=== PATIENT | female | born 1970 | race Caucasian/White ===

== ENCOUNTER 2022-10-10 11:16 | Outpatient (OUT) | payer BC, SELFPAY ==
--- NOTE | 2022-10-10 11:17 | XR_ITS ---
The [place] [id number] Patient Name: ANALY BARNES MRN: [id number] date: 1970 Sex: F Assigned Patient Location: [facility] Current Patient Location: [facility] Accession/Order Number: [id number] Exam Date: 10/10/2022 11:16 Report Date: 10/10/2022 15:48 At the request of: ZACH MCNAMARA Procedure: XR foot RT min 3V PROCEDURE: XR foot RT min 3V HISTORY: RIGHT FOOT PAIN COMPARISON: XR foot right 09/19/2022 FINDINGS: BONES:Mechanical fusion of the first metatarsophalangeal joint via dorsal plate and screws; no hardware fracture or loosening. No bone fracture dislocation. Mild degenerative changes the midfoot and calcaneal degenerative enthesopathic spurring. SOFT TISSUES:Mild distal dorsal soft tissue swelling. EFFUSION:None visible. OTHER: Negative. IMPRESSION: 1. Stable surgical changes without evidence of hardware failure or change in alignment. Electronically authenticated by: JELENA CORONADO Date: 10/10/2022 15:48
== END 2022-10-10 11:17 ==
PROVIDERS: PCP Podiatrist Foot & Ankle Surgery; Visit Provider Podiatrist Foot & Ankle Surgery
DX: M20.11 Hallux valgus (acquired), right foot (principal)
CPT/HCPCS: 73630

== ENCOUNTER 2022-11-22 10:57 | Outpatient (OUT) | payer BC, SELFPAY ==
--- NOTE | 2022-11-22 11:10 | XR_ITS ---
The [address] [address] Patient Name: ANALY BARNES MRN: [id number] date: 1970 Sex: F Assigned Patient Location: [facility] Current Patient Location: [facility] Accession/Order Number: [id number] Exam Date: 11/22/2022 11:10 Report Date: 11/22/2022 15:11 At the request of: ZACH MCNAMARA Procedure: XR foot RT min 3V PROCEDURE: XR foot RT min 3V DATE: 11/22/2022 10:10 AM CDT COMPARISONS: 10/10/2022 CLINICAL INDICATION: RIGHT FOOT PAIN FINDINGS: As on previous exam there is dorsal plate fixed by screws traversing the first metatarsal phalangeal joint space. This plate now shows a fracture with 1 to 2 mm of distraction. There also was a oblique pin traversing the joint space. This has retracted somewhat as it joint space is not widened when compared to previous exam. The findings suggest that the first metatarsal phalangeal joint space fusion has been distracted a few millimeters. XR/XR foot RT min 3V IMPRESSION: The significant finding on today's exam is that the dorsal metallic plate fixating the first metatarsal phalangeal joint space has fractured with slight distraction. The first metatarsal phalangeal fusion has distracted slightly. The oblique screw has also retracted slightly. . Electronically authenticated by: TERRENCE LEWIS Date: 11/22/2022 15:11
== END 2022-11-22 10:58 | disposition home or self-care (01) ==
LOC: RAD 10:57
PROVIDERS: Visit Provider Podiatrist Foot & Ankle Surgery
DX: M20.11 Hallux valgus (acquired), right foot (principal)
CPT/HCPCS: 73630

== ENCOUNTER 2022-12-02 10:09 | Outpatient (OUT) | payer BC, SELFPAY ==
--- NOTE | 2022-12-02 | CT_ITS ---
The [address] [address] Patient Name: ANALY BARNES MRN: [id number] date: 1970 Sex: F Assigned Patient Location: CT Current Patient Location: CT Accession/Order Number: [id number] Exam Date: 12/02/2022 10:45 Report Date: 12/02/2022 23:02 At the request of: ZACH MCNAMARA Procedure: CT foot RT wo con EXAM: CT foot RT wo con HISTORY: Postoperative foot pain COMPARISON: X-rays 11/22/2022 TECHNIQUE: Axial CT imaging is performed. Sagittal and coronal reformatted/reconstructed sequencing was performed. FINDINGS: The patient is status post first metatarsophalangeal joint attempted arthrodesis using dorsal plate and screws and a medial lateral oblique screw. There is a fracture of the proximal aspect of the plate adjacent to the third distal screw within the metatarsal head. The 3 distal proximal phalanx screws exhibit no gross abnormality. The screw head of the oblique screw is a proud from the medial cortex of the proximal phalanx by 3 mm (see axial 127). The distal aspect of the screw threads are proud from the lateral cortex of the first metatarsal by 4 mm. There is no osseous incorporation of the first metatarsophalangeal joint. Degenerative changes of the first metatarsal head and sesamoid articulation. Subcutaneous soft tissue edema adjacent to the first metatarsophalangeal joint. No visualized acute osseous fracture, dislocation, subluxation or osseous lesion. The remainder of the joint spaces are unremarkable for patient's age.. CT/CT foot RT wo con IMPRESSION: 1. Failed arthrodesis of the first metatarsophalangeal joint with a fracture of the dorsal plate and no osseous incorporation of the first metatarsophalangeal joint. 2. The transverse screw between the first proximal phalanx and first metatarsal head is proud 3 mm from the medial cortex of the first proximal phalanx and the threads are 4 mm proud from the lateral cortex of the metatarsal. Electronically authenticated by: JANELLE MEZA Date: 12/02/2022 23:02
== END 2022-12-02 10:10 | disposition home or self-care (01) ==
LOC: CT 10:10
PROVIDERS: PCP Nurse Practitioner Family; Visit Provider Podiatrist Foot & Ankle Surgery
DX: M20.11 Hallux valgus (acquired), right foot (principal); M96.0 Pseudarthrosis after fusion or arthrodesis; T84.213A Breakdown (mechanical) of internal fixation device of bones of foot and toes, initial encounter
CPT/HCPCS: 73700

== ENCOUNTER 2022-12-07 11:06 | Outpatient (OUT) | payer BC, SELFPAY ==
--- NOTE | 2022-12-07 11:40 | P.GSHP_ITS ---
History of Present Illness History of Present Illness Chief complaint: hallux valgus right Narrative: Patient presents for preadmission testing. Please see HPI from Dr. Thakur dated 11/22/2022. Review of Systems ROS Narrative Please see ROS from Dr. Thakur dated 11/22/2022. [facility] Medical History (Updated 12/07/22 @ 11:43 by Marianna Bustos NP) Surgical History (Updated 12/07/22 @ 11:25 by Marianna Bustos NP) Family History (Updated 12/07/22 @ 11:24 by Marianna Bustos NP) Other Family history of breast cancer Family history of diabetes mellitus Family history of stroke Social History (Updated 12/07/22 @ 11:22 by Marianna Bustos NP) Within the past year, how often did you have a drink containing alcohol: never Score interpretation: A score less than 3 is consistent with normal alcohol consumption. 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 Highest level of school completed/degree received: high school graduate Meds Home Medications and Allergies Home Medications Medication Instructions Recorded Confirmed Type calcium 100 mg capsule mg PO 12/07/22 History magnesium 200 mg tablet 200 mg PO DAILY 12/07/22 12/07/22 History multivitamin (Daily Multi-Vitamin 1 tab PO DAILY 12/07/22 12/07/22 History tablet) omega 2-egr-eri-fish oil 1,000 mg 1 cap PO DAILY 12/07/22 12/07/22 History (120 mg-180 mg) capsule (Fish Oil) Allergies Allergy/AdvReac Type Severity Reaction Status Date / Time morphine Allergy itching Verified 12/07/22 11:19 Exam Narrative Exam Narrative: Constitutional: Awake, alert, comfortable, well-appearing, nontoxic, interactive, vital signs as charted Head: Normocephalic, atraumatic Neck: Supple, normal appearance, normal range of motion, no meningeal signs, no lymphadenopathy Respiratory: No respiratory distress, breath sounds clear Cardiovascular: Regular rate and rhythm, strong and regular heart tones Psychiatric: Oriented ?3, Flat affect Assessment and Plan Assessment and Plan (1) Hallux valgus: (2) Pseudoarthrosis: (3) Metal bone fixation hardware in place: (4) Pain due to internal orthopedic prosthetic devices, implants and grafts, subsequent encounter: (5) Unspecified complication of internal orthopedic prosthetic device, implant and graft, subsequent encounter: Plan 1st MPJ revision arthrodesis, removal of hardware and placement of new hardware right foot scheduled with Dr. Thakur 12/11/2022.
[2022-12-07 12:08] LABS: Anion Gap 11.4; BUN Creatinine Ratio 19.2; Calcium 8.6 mg/dL (8.5-10.1); Carbon Dioxide 25.7 mmol/L (21.0-32.0); Chloride 105 mmol/L (98-107); Estimated GFR (African America >60 (>=60); Estimated GFR (Non-African Ame >60 (>=60); Glucose 98 mg/dL (74-106); Potassium 4.1 mmol/L (3.5-5.1); Sodium 138 mmol/L (136-145)
== END 2022-12-07 11:07 | disposition home or self-care (01) ==
PROVIDERS: PCP Nurse Practitioner Family; Visit Provider Podiatrist Foot & Ankle Surgery
DX: Z01.812 Encounter for preprocedural laboratory examination (principal); Z01.818 Encounter for other preprocedural examination; M20.11 Hallux valgus (acquired), right foot; M96.0 Pseudarthrosis after fusion or arthrodesis; I10 Essential (primary) hypertension
CPT/HCPCS: 36415; 80048; G0463

== ENCOUNTER 2022-12-11 07:21 | Day surgery (SDC) | payer BC, SELFPAY ==
[2022-12-07 11:33] VITALS: BP 126/71; PULSE 78; RESP 14; TEMP 36.2; O2SAT 96; BMI 34.7
[2022-12-11] VITALS (10 sets, daily range): BP systolic 134–150; BP diastolic 72–84; PULSE 70–86; RESP 9–20; TEMP 36.2–36.4; O2SAT 92–98; BMI 34.6
--- NOTE | 2022-12-11 | XR_ITS ---
[address] [address] Patient Name: ANALY BARNES MRN: [id number] date: 1970 Sex: F Assigned Patient Location: [facility] Current Patient Location: [facility] Accession/Order Number: [id number] Exam Date: 12/11/2022 09:20 Report Date: 12/11/2022 23:34 At the request of: ZACH MCNAMARA Procedure: XR foot RT 2V EXAM: XR foot RT 2V HISTORY: RIGHT FOOT PAIN COMPARISON: None. TECHNIQUE: 19 image intensifier views FINDINGS: 19 intraoperative image intensifier views document revision of the first MP joint arthrodesis. Electronically authenticated by: Svetlana TRIVEDI Date: 12/11/2022 23:34
[2022-12-11 07:30] LABS: Basophils Absolute Auto 0.1 10^3/uL (0.0-0.1); Basophils Percent Auto 0.8 % (0.2-2.0); Eosinophils Absolute Auto 0.2 10^3/uL (0.0-0.7); Eosinophils Percent Auto 2.2 % (0.9-7.0); Hematocrit 39.6 % (36.0-48.0); Immature Granulocytes Abs Auto 0.03 10^3/uL (0.00-0.03); Immature Granulocytes Pct Auto 0.3 % (0.0-0.5); Lymphocytes Percent Auto 32.8 % (20.5-60.0); Mean Corpuscular HGB Conc 32.8 g/dL (29.9-35.2); Mean Corpuscular Hemoglobin 29.6 pg (26.7-34.0); Mean Corpuscular Volume 90.2 fL (81.0-99.0); Mean Platelet Volume 9.3 fL (9.5-13.5); Monocytes Absolute Auto 0.9 10^3/uL (0.3-0.8); Monocytes Percent Auto 9.9 % (1.7-12.0); Neutrophils Absolute Auto 4.9 10^3/uL (1.4-6.5); Platelet Count 273 10^3/uL (150-450); Red Blood Count 4.39 10^6/uL (4.20-5.40); White Blood Count 9.1 10^3/uL (4.0-11.0)
--- NOTE | 2022-12-11 07:53 | PC.NURSE ---
right great toe is swollen
[2022-12-11 07:57] LABS: Glucometer 115 mg/dL (74-106)
[2022-12-11] MEDS: LACTATED RINGER'S SOLUTION 1,000 ML 50 ML IV (07:58)
[2022-12-11] MEDS: CEFAZOLIN SODIUM/DEXTROSE,ISO 2 GM/50 ML PIGGYBACK IV (09:08)
--- NOTE | 2022-12-11 09:35 | PC.NURSE ---
0817- Final timeout completed. Patient placed on O2 at 3/L min via nc. Patient also placed on heart monitor. 0820- Patient positioned for right abductor canal block. Dr. Murrell at bedside and cleans right foot using sterile technique. 0824- Abductor canal block initiated. 0826- Abductor canal block completed. Patient tolerated it well. 0827- Patient positioned on left hip. 0829- Right popliteal block initiated. 0832- Popliteal block completed. Patient tolerated it well. See posted vital signs and heart rhythm strip.
[2022-12-11] MEDS: THROMBI-GEL SIZE 40 HEMOSTAT 1 EACH TOPICAL (10:19)
--- NOTE | 2022-12-11 11:19 | XR_ITS ---
The [address] [address] Patient Name: ANALY BARNES MRN: [id number] date: 1970 Sex: F Assigned Patient Location: [facility] Current Patient Location: [facility] Accession/Order Number: [id number] Exam Date: 12/11/2022 12:10 Report Date: 12/11/2022 23:45 At the request of: MARTHA GUARDADO Procedure: XR foot RT min 3V EXAM: XR foot RT min 3V HISTORY: postop xr PACU COMPARISON: 11/22/2022 TECHNIQUE: 3 view study FINDINGS: The first MP joint arthrodesis has been revised, with replacement of the plate and screws as well as presence of 2 crisscrossing screws across the joint. Other bony structures of the foot are intact. Forefoot soft tissue swelling. XR/XR foot RT min 3V IMPRESSION: Postoperative study documenting revision of the first MP joint arthrodesis. Electronically authenticated by: Svetlana TRIVEDI Date: 12/11/2022 23:45
--- NOTE | 2022-12-11 11:25 | PM.ORONB ---
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 revision first metatarsal phalangeal joint fusion with excision of nonunion 2. removal of deep implanted hardware 3. [place] of distal tibial bone graft 4. Application of short leg splint 5. Intraoperative fluoroscopy examination *All procedures were performed on the RIGHT foot INTRAOPERATIVE FINDINGS: dorsal plate broken near the level of the metatarsophalangeal joint. Fibrous tissue within the metatarsophalangeal joint which was frankly unstable once hardware was removed. Bone quality of the metatarsal head and proximal phalanx base was soft. Capsular thickening was noted. No purulence. PROCEDURE IN DETAIL: Patient was identified in pre op and consent was reviewed. Correct side and site were identified and marked. Pre-op antibiotics were started. Patient was brought to OR suite and place on table in a supine position. General anesthesia was administered. A tourniquet was applied. Operative extremity was prepped and draped in usual sterile fashion. Formal time-out was performed and the foot/ankle were exsanguinated and tourniquet inflated. Incision created over dorsal aspect of the 1st MPJ. Bleeders coagulated. EHL protected throughout the procedure. Capsulotomy performed and the dorsal plate/screw construct was identified. The screws were removed with appropriate screwdriver followed by the plate which had broken into near the level of the joint. Then a stab incision was placed over the medial aspect of the great toe and a guidewire was used to identify the cannulated screw which had not loosened. This screw was also removed with appropriate screwdriver. A rongeur and osteotome was used to resect the nonunion and fibrous tissue within the joint. McGlammry elevator inserted into 1st MPJ. Guide Pin place in 1st metatarsal head. Conical reamers we used prepared the 1st metatarsal head resecting soft devitalized bone. Guide pin removed. Conical reamers used on proximal phalanx in a similar manner. 2.0 mm drill used to on each side of the joint. The site was irrigated with 3 L of normal saline. Then a clean rongeur was used to obtain a specimen from the 1st metatarsal head which was sent for culture. A 2 cm incision was created 2 cm proximal to the ankle joint and just medial to the tibialis anterior tendon. Combination sharp blunt dissection gained access to the distal tibial metaphysis and the periosteum was reflected carefully. An 8 mm bone harvester was drilled into the distal tibial metaphysis and 3 cc of cancellus autograft was obtained. Gelfoam was then packed into the harvest site and deep closure with absorbable suture was performed followed by closure with skin suture. the autograft was mixed with 1 cc of Sparc allograft. Bone graft was then packed into the fusion site. Two guide wires were then used to pin the MPJ in a rectus position under fluoroscopic guidance. Position was checked both on the table and under fluoroscopy. A saw was used to contour the dorsal aspect of the 1st metatarsal and proximal phalanx to accommodate plate fixation. A revision 3.[address] plate was place over the fusion site and temporarily fixed. Then elevator pilot holes were drilled for locking 3.5 mm screws which were measured and placed according to the manufactor's standard directions. Again position was checked under fluoroscopy as well as on the table. Temporary fixation was removed and additional screws were placed. After drilling over the guide wire, 4.0 mm cannulated headed screw was inserted from distal-medial to proximal-lateral. then the other guide pin was advanced through a percutaneous incision placed on the medial foot. Fluoroscopy was used to confirm this guidewires placement and orientation. Then a 2nd 4.0 mm cannulated screw was inserted over this guidewire from proximal?medial to distal?lateral. Again position of the great toe and hardware placement were checked on the table and under fluoroscopy. The surgical site was irrigated with copious amounts of sterile saline. any remaining bone graft was then packed around the fusion site.The incision was then closed in layers. The tourniquet was deflated and a prompt hyperemic response was noted. A dry sterile dressing consisting of Xeroform on the incisions followed by 4 x 4 gauze, ABDs, and Kerlix were applied. Multiple layers of cast padding were then applied to ensure all bony prominences were well-padded. A plaster posterior splint was then applied which was held in place by Stanley wraps. Capillary refill time to all digits was evaluated and had appropriate response. POSTOPERATIVE PLAN: Discharge home under family's care Post op instructions provided verbally and written prescription(s) were placed in chart NWB operative foot/ankle x1-3 wk Follow-up in 1 week - likely to be placed into a total contact cast and possible partial protected weightbearing Implants: Medline Anesthesia: GETA and regional Surgeon: Lm Thakur Silica Mixer Operator: Olivier Blanchard Estimated blood loss (mL): 10 Pathology: other (bone from 2nd metatarsal) Condition: stable Disposition: PACU Preoperative Details Reason for procedure: patient is a 52-year-old female who underwent 1st metatarsophalangeal joint fusion on 08/28/2022. 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 X-rays revealed that the dorsal plate had fractured and a CT scan was ordered. CT scan showed lack of bone healing/consolidation at the fusion site. After reviewing imaging with patient I recommended to undergo revision and I explained the potential risks and benefits. Patient agreed with the plan and consent was obtained.
[2022-12-11 12:11] LABS: Glucometer 133 mg/dL (74-106)
--- NOTE | 2022-12-11 12:16 | PC.NURSE ---
RIGHT FOOT XRAY COMPLETED ORDERED. PATIENT TOLERATED IT WELL
== END 2022-12-11 12:55 | disposition home or self-care (01) ==
PROVIDERS: Anesthesiology; PCP Nurse Practitioner Family; Visit Provider Podiatrist Foot & Ankle Surgery
PROC: (CPT 20680; principal; 2022-12-11 08:30)
DX: M20.11 Hallux valgus (acquired), right foot (principal); M96.0 Pseudarthrosis after fusion or arthrodesis; T84.84XA Pain due to internal orthopedic prosthetic devices, implants and grafts, initial encounter; Z96.7 Presence of other bone and tendon implants; Z86.718 Personal history of other venous thrombosis and embolism; Z90.710 Acquired absence of both cervix and uterus; Z90.49 Acquired absence of other specified parts of digestive tract; Z87.891 Personal history of nicotine dependence
CPT/HCPCS: 20680; 20900; 28322; 28750; 36415; 73620; 73630; 76000; 82948; 85025; 87070; 87102; 87116; 87205; 87206; 99999; C1713; J2704

== ENCOUNTER 2023-01-03 10:25 | Outpatient (OUT) | payer BC, SELFPAY ==
--- NOTE | 2023-01-03 | XR_ITS ---
The [address] [address] Patient Name: ANALY BARNES MRN: [id number] date: 1970 Sex: F Assigned Patient Location: [facility] Current Patient Location: [facility] Accession/Order Number: [id number] Exam Date: 01/03/2023 10:45 Report Date: 01/03/2023 11:04 At the request of: ZACH MCNAMARA Procedure: XR foot RT min 3V PROCEDURE: XR foot RT min 3V HISTORY: RIGHT FOOT PAIN COMPARISON: XR foot right 12/11/2022 FINDINGS: BONES:Mechanical fusion of the first metatarsophalangeal joint via dorsal plate and screws. No hardware fracture or loosening. No bone fracture or dislocation. Mild/moderate degenerative changes the midfoot. Prominent degenerative enthesopathic spurring of the calcaneus. Prior bone harvesting from distal tibia. SOFT TISSUES:Dorsal soft tissue swelling. Interval removal of cast material. EFFUSION:None visible. OTHER: Negative. XR/XR foot RT min 3V IMPRESSION: 1. Stable surgical changes without evidence of hardware failure or change in alignment. Electronically authenticated by: JELENA CORONADO Date: 01/03/2023 11:04
== END 2023-01-03 10:26 | disposition home or self-care (01) ==
LOC: RAD 10:25
PROVIDERS: PCP Nurse Practitioner Family; Visit Provider Podiatrist Foot & Ankle Surgery
DX: M20.11 Hallux valgus (acquired), right foot (principal)
CPT/HCPCS: 73630

== ENCOUNTER 2023-01-24 10:47 | Outpatient (OUT) | payer BC, SELFPAY ==
--- NOTE | 2023-01-24 | XR_ITS ---
The [address] [address] Patient Name: ANALY BARNES MRN: [id number] date: 1970 Sex: F Assigned Patient Location: [facility] Current Patient Location: [facility] Accession/Order Number: [id number] Exam Date: 01/24/2023 11:06 Report Date: 01/24/2023 12:57 At the request of: ZACH MCNAMARA Procedure: XR foot RT min 3V PROCEDURE: XR foot RT min 3V HISTORY: RIGHT FOOT PAIN COMPARISON: XR foot right 01/03/2023 FINDINGS: BONES:Mechanical fusion the first metatarsophalangeal joint via dorsal plate and screws; no appreciable fracture or loosening. No bone fracture or dislocation. Mild degenerative changes the midfoot. Calcaneal degenerative enthesopathic spurring. SOFT TISSUES:No visible soft tissue swelling. EFFUSION:None visible. OTHER: Negative. XR/XR foot RT min 3V IMPRESSION: 1. Stable surgical changes without evidence of hardware failure or change in alignment. Electronically authenticated by: JELENA CORONADO Date: 01/24/2023 12:57
== END 2023-01-24 10:48 | disposition home or self-care (01) ==
LOC: RAD 10:47
PROVIDERS: PCP Nurse Practitioner Family; Visit Provider Podiatrist Foot & Ankle Surgery
DX: M20.11 Hallux valgus (acquired), right foot (principal)
CPT/HCPCS: 73630

== ENCOUNTER 2023-02-14 11:59 | Outpatient (OUT) | payer BC, SELFPAY ==
--- NOTE | 2023-02-14 | XR_ITS ---
The [address] [address] Patient Name: ANALY BARNES MRN: [id number] date: 1970 Sex: F Assigned Patient Location: [facility] Current Patient Location: [facility] Accession/Order Number: [id number] Exam Date: 02/14/2023 10:15 Report Date: 02/14/2023 11:28 At the request of: ZACH MCNAMARA Procedure: XR foot RT min 3V PROCEDURE: XR foot RT min 3V HISTORY: RIGHT FOOT PAIN F/U COMPARISON: XR foot right 01/24/2023 FINDINGS: BONES:Mechanical fusion the first metatarsophalangeal joint via dorsal plate and screws. No hardware fracture loosening. No bone fracture dislocation. Prior bone harvesting from distal tibia. Mild-moderate degenerative changes of the midfoot. Calcaneal degenerative enthesopathic spurring. SOFT TISSUES:No visible soft tissue swelling. EFFUSION:None visible. OTHER: Negative. XR/XR foot RT min 3V IMPRESSION: 1. Stable surgical changes without evidence of hardware failure or change in alignment. Electronically authenticated by: JELENA CORONADO Date: 02/14/2023 11:28
== END 2023-02-14 12:00 | disposition home or self-care (01) ==
LOC: RAD 11:59
PROVIDERS: PCP Nurse Practitioner Family; Visit Provider Podiatrist Foot & Ankle Surgery
DX: M20.11 Hallux valgus (acquired), right foot (principal)
CPT/HCPCS: 73630

== ENCOUNTER 2023-03-28 09:45 | Outpatient (OUT) | payer BC, SELFPAY ==
--- NOTE | 2023-03-28 | XR_ITS ---
The [place] [id number] Patient Name: ANALY BARNES MRN: [id number] date: 1970 Sex: F Assigned Patient Location: [facility] Current Patient Location: Accession/Order Number: [id number] Exam Date: 03/28/2023 09:50 Report Date: 03/30/2023 08:00 At the request of: ZACH MCNAMARA Procedure: XR foot RT min 3V PROCEDURE: XR foot RT min 3V HISTORY: RIGHT FOOT PAIN COMPARISON: XR foot right 02/14/2023 FINDINGS: BONES:Mechanical fusion of the first metatarsophalangeal joint via dorsal plate and screws. Calcaneal enthesopathic spurring. No fracture, dislocation, or bone lesion. SOFT TISSUES:No visible soft tissue swelling. EFFUSION:None visible. OTHER: Negative. XR/XR foot RT min 3V IMPRESSION: 1. Stable surgical changes without hardware failure or change in alignment. Electronically authenticated by: JELENA CORONADO Date: 03/30/2023 08:00
== END 2023-03-28 09:46 | disposition home or self-care (01) ==
LOC: RAD 09:45
PROVIDERS: PCP Nurse Practitioner Family; Visit Provider Podiatrist Foot & Ankle Surgery
DX: M20.11 Hallux valgus (acquired), right foot (principal)
CPT/HCPCS: 73630

== ENCOUNTER 2023-06-27 10:24 | Outpatient (OUT) | payer BC, SELFPAY ==
--- NOTE | 2023-06-27 | XR_ITS ---
The [address] [address] Patient Name: ANALY BARNES MRN: [id number] date: 1970 Sex: F Assigned Patient Location: Current Patient Location: Accession/Order Number: [id number] Exam Date: 06/27/2023 10:26 Report Date: 06/28/2023 20:21 At the request of: ZACH MCNAMARA Procedure: XR foot RT min 3V EXAM: XR foot RT min 3V HISTORY: RIGHT FOOT PAIN COMPARISON: 03/28/2023 and earlier. TECHNIQUE: AP lateral oblique x-ray right foot. FINDINGS: No acute fracture or healing fracture or other new abnormality. Previous first metatarsophalangeal joint fusion with dorsal plate and screws since 2 separate screws which appear unchanged in appearance and position. No developing lucency or findings suggesting loosening. Degenerative bone medially appears stable. Minor degenerative changes in the toes stable. Degenerative changes midfoot unchanged. Posterior and plantar calcaneal spurs again noted. Soft tissue stable. XR/XR foot RT min 3V IMPRESSION: Previous metatarsal phalangeal fusion great toe. Hardware appears intact and stable without findings suggesting loosening.. No fracture or new/acute appearing bony abnormality. Electronically authenticated by: FAIZA RICHMOND Date: 06/28/2023 20:21
--- OUTSIDE RECORDS SUMMARY | 2023-06-27 10:27 | XMS_ITS | CCD ---
Author Name Unknown Address [address] [place] [address] Organization [facility] Care Team Providers Care Client Hr Manager Name Role Phone Joelle Conn MD Primary Care Provider MD Chente Powell Attending Provider MD Kiara Zelaya Primary Care Provider Chente Powell Admitting Unavailable Chente Powell Attending Unavailable Kiara Zelaya Primary Care Unavailable Joelle Conn MD Primary Care Provider JOELLE CONN Referring Unavailable JOELLE CONN Primary Care Unavailable FREDIS GRAYSON Attending Unavailable FREDIS GRAYSON Referring Unavailable JOELLE CONN Primary Care Unavailable FREDIS GRAYSON Attending Unavailable ROSCOE ., WEST Admitting Unavailable ROSCOE ., WEST Attending Unavailable Casimiro Michele Consulting Unavailable DR KIARA ZELAYA Primary Care Unavailable ZACH MCNAMARA Consulting Unavailable BERNARDO CROSS Consulting Unavailable DANIAL SALINAS Consulting Unavailable ROSCOE ., WEST Consulting Unavailable LORENZO JACOBS Consulting Unavailable WEST KAMARA Consulting Unavailable ZACH MCNAMARA Consulting Unavailable ZACH MCNAMARA Attending Unavailable ZACH MCNAMARA Admitting Unavailable DR KIARA ZELAYA Primary Care Unavailable ZACH MCNAMARA Attending Unavailable ZACH MCNAMARA Admitting Unavailable Casimiro Michele Consulting Unavailable ZACH MCNAMARA Consulting Unavailable DR KIARA ZELAYA Primary Care Unavailable ZACH MCNAMARA Consulting Unavailable ZACH MCNAMARA Attending Unavailable ZACH MCNAMARA Admitting Unavailable Allergies Allergy Classification Reported Allergen(s) Allergy Type Date of Onset Reaction(s) Facility (3 sources) Morphine Drug Allergy 07-12-2011 [facility] Work Phone: (1 source) Morphine Drug Allergy 07-17-2022 [facility] Repository (1 source) Morphine Drug Allergy 08-16-2022 [facility] Repository Medications Current Medications Medication Drug Class(es) Dates Sig (Normalized) Sig (Original) 12 hr buPROPion hydrochloride 90 mg / naltrexone hydrochloride 8 mg extended release oral tablet (1 source) Opioid Antagonist, Aminoketone Start: 07-17-2022 take 1 tablet by mouth twice daily Naltrexone-Buprop ion (Contrave) 8-90 mg Tablet Extended Release Active 1 TAB PO Twice daily July 17, 2022 12:00am Calcium Carbonate / Vitamin D (3 sources) Calcium Carbonate-Vitamin D (CALCIUM 600 + D PO) Take by mouth daily. 0 Active docosahexaenoic acid 1000 mg / omega-3 acid ethyl esters (half-way) 300 mg delayed release oral capsule (3 sources) Hubbell-3 Fatty Acids (FISH OIL) [address] Take by mouth daily. 0 Active Magnesium (1 source) Start: 07-17-2022 take 250 mg by mouth once daily Magnesium Active 250 MG PO Daily July 17, 2022 12:00am magnesium gluconate 500 mg oral tablet (3 sources) take 1 tablet by mouth once daily Magnesium Gluconate 500 MG PO TABS Take 1 tablet by mouth daily. 0 Active meloxicam (2 sources) Nonsteroidal Anti-inflammatory Drug MELOXICAM PO Take by mouth as needed. 0 Active Multiple Vitamin (MULTI-VITAMIN PO) (3 sources) Multiple Vitamin (MULTI-VITAMIN PO) Take by mouth daily. 0 Active Multivitamin preparation (1 source) Start: 07-17-2022 take 1 tablet by mouth once daily Multivitamin Active 1 TAB PO Daily July 17, 2022 12:00am Naltrexone-buPROPion HCl (CONTRAVE PO) (2 sources) Naltrexone-buPRO P ion HCl (CONTRAVE PO) Take by mouth 2 times daily. 0 Active Hubbell 6-Fvd-Izf-Fish Oil (Fish Oil) 60-90-500 mg Capsule (1 source) Start: 07-17-2022 take 1 capsule by mouth once daily Hubbell 0-Jcj-Kcn-Fish Oil (Fish Oil) 60-90-500 mg Capsule Active 1 CAP PO Daily July 17, 2022 12:00am Problems Active Problems Problem Classification Problem Date Documented Da te Episodic/Chronic Acquired foot deformities (5 sources) Hallux valgus (acquired), right foot; Translations: [HALLUX VALGUS ACQUIRED RIGHT FOOT] Onset: 08-21-2022 Chronic Acquired foot deformities (2 sources) Other deformities of toe(s) (acquired), right foot; Translations: [Bunion of right foot] Onset: 07-02-2022 Episodic Essential hypertension (1 source) Essential (primary) hypertension; Translations: [ESSENTIAL PRIMARY HYPERTENSION] Onset: 08-21-2022 Chronic Nonmalignant breast conditions (6 sources) Fibrocystic changes of bilateral breasts; Translations: [Diffuse cystic mastopathy of right breast] Onset: 07-26-2022 Chronic Osteoarthritis (1 source) Primary osteoarthritis, right ankle and foot; Translations: [PRIMARY OSTEOARTHRITIS RT ANK FOOT] Onset: 07-02-2022 Chronic Other connective tissue disease (4 sources) Pain in right foot; Translations: [PAIN IN RIGHT FOOT] Onset: 06-28-2022 Episodic Other nutritional; endocrine; and metabolic disorders (3 sources) Obesity; Translations: [Obesity, unspecified] Onset: 02-07-2016 02-07-2016 Chronic Other screening for suspected conditions (not mental disorders or infectious disease) (10 sources) Breast neoplasm screening status; Translations: [Encounter for other screening for malignant neoplasm of breast] Onset: 10-25-2011 Resolved: 07-27-2021 12-07-2014 Episodic Phlebitis; thrombophlebitis and thromboembolism (1 source) Personal history of other venous thrombosis and embolism; Translations: [PERS HX OTH VENOUS THROMBOSIS AND EMBO] Onset: 08-30-2022 Episodic Residual codes; unclassified (5 sources) Family history of breast cancer; Translations: [Family history of malignant neoplasm of breast] Onset: 07-05-2013 07-05-2013 Episodic Residual codes; unclassified (1 source) Family history of malignant neoplasm of breast; Translations: [Family history of malignant neoplasm of breast] Onset: 07-26-2022 Episodic Residual codes; unclassified (1 source) Acquired absence of other specified parts of digestive tract; Translations: [ACQ ABSENCE OTH PART DIGESTV TRACT] Onset: 08-30-2022 Episodic Residual codes; unclassified (1 source) Acquired absence of both cervix and uterus; Translations: [ACQUIRED ABSENCE BOTH CERVIX AND UTERUS] Onset: 08-30-2022 Episodic Screening and history of mental health and substance abuse codes (1 source) Personal history of nicotine dependence; Translations: [PERSONAL HISTORY OF NICOTINE DEPEND] Onset: 08-30-2022 Episodic Unclassified (1 source) Encounter for screening for malignant neoplasm of colon; Translations: [Encounter for screening for malignant neoplasm of colon] Onset: 07-17-2022 Past or Other Problems Problem Classification Problem Date Documented Da te Episodic/Chronic Mood disorders (3 sources) Mood disorders Onset: 07-27-2021 Resolved: 07-26-2022 07-27-2021 Results Test Name Value Interpretation Reference Range Facility CBC AUTO DIFFon 08-28-2022 BASO # 0.1 103/ul Normal 0.0-0.1 [facility] Comment on above: Performed By: #### C BC #### [facility] Laboratory [address] [place] [address] Dr. Eric Brady Basophils/100 WBC (Bld) 0.7 % Normal 0.2-2.0 [facility] Comment on above: Performed By: #### C BC #### [facility] Laboratory [address] [address] [address] Eric Brady EO # 0.2 103/ul Normal 0.0-0.7 [facility] Comment on above: Performed By: #### C BC #### [facility] [address] [place] [address] Dr. Eric Brady Eosinophils/100 WBC (Bld) 2.3 % Normal 0.9-7.0 [facility] Comment on above: Performed By: #### C BC #### [facility] [address] [place] [address] Dr. Eric Brady Erythrocyte distribution width (RBC) [Ratio] 12.9 % Normal 11.0-15.0 [facility] Comment on above: Performed By: #### C BC #### [facility] [address] [place] [address] Dr. Eric Brady Hematocrit (Bld) [Volume fraction] 40.7 % Normal 36.0-48.0 [facility] Comment on above: Performed By: #### C BC #### [facility] [address] [place] [address] Dr. Eric Brady Hemoglobin (Bld) [Mass/Vol] 13.2 g/dL Normal 12.0-16.0 [facility] Comment on above: Performed By: #### C BC #### [facility] [address] [place] [address] Dr. Eric Brady IG # 0.02 10e3/ul Normal 0.00-0.03 [facility] Comment on above: Performed By: #### C BC #### [facility] [address] [place] [address] Dr. Eric Brady IG % 0.2 % Normal 0.0-0.5 [facility] Comment on above: Performed By: #### C BC #### [facility] [address] [place] [address] Dr. Eric Brady LYMPH # 2.5 103/ul Normal 1.2-3.8 [facility] Comment on above: Performed By: #### C BC #### [facility] [address] [place] [address] Dr. Eric Brady Lymphocytes/100 WBC (Bld) 30.3 % Normal 20.5-60.0 [facility] Comment on above: Performed By: #### C BC #### [facility] [address] [place] [address] Dr. Eric Brady MANUAL DIFF REQ NO Normal [facility] Comment on above: Performed By: #### C BC #### [facility] [address] [place] [address] Dr. Eric Brady MCH (RBC) [Entitic mass] 29.4 pg Normal 26.7-34.0 [facility] Comment on above: Performed By: #### C BC #### [facility] [address] [place] [address] Dr. Eric Brady MCHC (RBC) [Mass/Vol] 32.4 g/dL Normal 29.9-35.2 [facility] Comment on above: Performed By: #### C BC #### [facility] [address] [place] [address] Dr. Eric Brady MCV (RBC) [Entitic vol] 90.6 fL Normal 81.0-99.0 [facility] Comment on above: Performed By: #### C BC #### [facility] [address] [place] [address] Dr. Eric Brady MONO # 0.8 103/ul Normal 0.3-0.8 [facility] Comment on above: Performed By: #### C BC #### [facility] Laboratory [address] [place] [address] Dr. Eric Brady Monocytes/100 WBC (Bld) 10.1 % Normal 1.7-12.0 [facility] Comment on above: Performed By: #### C BC #### [facility] [address] [place] [address] Dr. Eric Brady NEUT # 4.7 103/ul Normal 1.4-6.5 [facility] Comment on above: Performed By: #### C BC #### [facility] [address] [place] [address] Dr. Eric Brady Neutrophils/100 WBC (Bld) 56.4 % Normal 43.0-75.0 [facility] Comment on above: Performed By: #### C BC #### [facility] [address] [place] [address] Dr. Eric Brady Platelet mean volume (Bld) [Entitic vol] 9.1 fL Critically low 9.5-13.5 [facility] Comment on above: Performed By: #### C BC #### [facility] [address] [place] [address] Dr. Eric Brady PLT 287 103/ul Normal 150-450 [facility] Comment on above: Performed By: #### C BC #### [facility] [address] [place] [address] Dr. Eric Brady RBC 4.49 106/ul Normal 4.20-5.40 [facility] Comment on above: Performed By: #### C BC #### [facility] [address] [place] [address] Dr. Eric Brady WBC 8.3 103/ul Normal 4.0-11.0 [facility] Comment on above: Performed By: #### C BC #### [facility] [address] [place] [address] Dr. Eric Brady POINT OF CARE GLUCOSEon 08-06 Glucose [Mass/Vol] 145 mg/dL Critically high 74-106 [facility] Comment on above: Performed By: #### P OCGLUC #### [facility] [address] [place] [address] Dr. Eric Brady Glucose [Mass/Vol] 127 mg/dL Critically high 74-106 [facility] Comment on above: Performed By: #### P OCGLUC #### [facility] [address] [place] [address] Dr. Eric Brady PROF CHEM 8 (BAS METB)on Anion gap [Moles/Vol] 12.3 mmol/L Normal [facility] Comment on above: Performed By: #### B MP #### [facility] [address] [place] [address] Dr. Eric Brady Calcium [Mass/Vol] 9.3 mg/dL Normal 8.5-10.1 [facility] Comment on above: Performed By: #### B MP #### [facility] [address] [place] [address] Dr. Eric Brady Chloride [Moles/Vol] 105 mmol/L Normal 98-107 [facility] Comment on above: Performed By: #### B MP #### [facility] [address] [place] [address] Dr. Eric Brady CO2 [Moles/Vol] 28.1 mmol/L Normal 21.0-32.0 [facility] Comment on above: Performed By: #### B MP #### [facility] [address] [place] [address] Dr. Eric Brady Creatinine [Mass/Vol] 0.92 mg/dL Normal 0.55-1.02 [facility] Comment on above: Performed By: #### B MP #### [facility] [address] [address] [address] Eric Brady EGFR-AF ROMANIAN >60 Normal >=60 [facility] Comment on above: Performed By: #### B MP #### [facility] [address] [address] [address] Eric Brady EGFR-NON AF ROMANIAN >60 Normal >=60 [facility] Comment on above: Performed By: #### B MP #### [facility] [address] [address] [address] Eric Brady Glucose [Mass/Vol] 100 mg/dL Normal 74-106 [facility] Comment on above: Performed By: #### B MP #### [facility] [address] [place] [address] Dr. Eric Brady Potassium [Moles/Vol] 4.4 mmol/L Normal 3.5-5.1 [facility] Comment on above: Performed By: #### B MP #### [facility] [address] [place] [address] Dr. Eric Brady Sodium [Moles/Vol] 141 mmol/L Normal 136-145 [facility] Comment on above: Performed By: #### B MP #### [facility] [address] [address] [address] Eric Brady Urea nitrogen [Mass/Vol] 13.0 mg/dL Normal 7.0-18.0 [facility] Comment on above: Performed By: #### B MP #### [facility] [address] [place] [address] Dr. Eric Brady Urea nitrogen/Creatinine [Mass ratio] 14.1 mg/mg Normal [facility] Comment on above: Performed By: #### B MP #### [facility] [address] [place] [address] Dr. Eric Brady MAMMO SCREENING WITH ARLENE BI LATERALon 07-26-2022 MAMMO SCREENING WITH ARLENE BILATERAL EXAM: MAMMO SCREENING WITH ARLENE BILATERAL, 07/26/2022 14:00 PM CLINICAL INDICATIONS: 52-year-old female for screening mammogram COMPARISON: Multiple prior mammograms including the most recent dated July 27, 2021 TECHNIQUE: 2-D MLO and CC views were obtained of the bilateral breasts. 3-D MLO and CC digital tomosynthesis images were also acquired. Computer aided detection was utilized. FINDINGS: The breasts have scattered areas of fibroglandular density. There are no suspicious masses, calcifications, or architectural distortions. IMPRESSION: No mammographic evidence of malignancy. BI-RADS: 1: Negative Recommendation: Routine mammography. Recommendation Laterality: Bilateral The current National [employer] Network and [employer] guidelines recommend women undergo a screening mammogram every year over the age of 40 and continue mammographic screening as long as they are in good health. Screening mammography under age 40 may occur for women who are at increased risk for breast cancer. I personally viewed and interpreted these images and I have reviewed and approved this report. Table formatting from the original result was not included. MAMMO STANDARD RISK Normal [facility] MG Breast - bilateral Screen ingon 07-26-2022 IMPRESSION: No mammographic evidence of malignancy. BI-RADS: 1: Negative Recommendation: Routine mammography. Recommendation Laterality: Bilateral The current National [employer] Network and [employer] guidelines recommend women undergo a screening mammogram every year over the age of 40 and continue mammographic screening as long as they are in good health. Screening mammography under age 40 may occur for women who are at increased risk for breast cancer. I personally viewed and interpreted these images and I have reviewed and approved this report. OLOGY EXAM: MAMMO SCREENING WITH ARLENE BILATERAL, 07/26/2022 14:00 PM CLINICAL INDICATIONS: 52-year-old female for screening mammogram COMPARISON: Multiple prior mammograms including the most recent dated July 27, 2021 TECHNIQUE: 2-D MLO and CC views were obtained of the bilateral breasts. 3-D MLO and CC digital tomosynthesis images were also acquired. Computer aided detection was utilized. FINDINGS: The breasts have scattered areas of fibroglandular density. There are no suspicious masses, calcifications, or architectural distortions. RADIOLOGY Jacek Garrison MD - 07/26/2022 EXAM: MAMMO SCREENING WITH ARLENE BILATERAL, 07/26/2022 14:00 PM CLINICAL INDICATIONS: 52-year-old female for screening mammogram COMPARISON: Multiple prior mammograms including the most recent dated July 27, 2021 TECHNIQUE: 2-D MLO and CC views were obtained of the bilateral breasts. 3-D MLO and CC digital tomosynthesis images were also acquired. Computer aided detection was utilized. FINDINGS: The breasts have scattered areas of fibroglandular density. There are no suspicious masses, calcifications, or architectural distortions. IMPRESSION IMPRESSION: No mammographic evidence of malignancy. BI-RADS: 1: Negative Recommendation: Routine mammography. Recommendation Laterality: Bilateral The current National [employer] Cancer Network and [employer] guidelines recommend women undergo a screening mammogram every year over the age of 40 and continue mammographic screening as long as they are in good health. Screening mammography under age 40 may occur for women who are at increased risk for breast cancer. I personally viewed and interpreted these images and I have reviewed and approved this report. [facility] Radiology Study observation (narrative) [facility] MG Breast - bilateral Screen ingOrdered By: Jacek Garrison on 07-26-2022 [facility] Work Phone: XR Hip Complete Right*on XR Hip Complete Right* CLINICAL INDICATION: Right hip pain, limited range of motion while walking. No injury. COMPARISON: None} FINDINGS: No evidence of hip fracture or dislocation. Sacral arcuate lines are intact. SI joints are symmetric. Bone mineralization is normal. There is mild left, and moderate right hip joint space narrowing and osteophytes. The soft tissues are unremarkable. IMPRESSION: Moderate right hip osteoarthrosis. Report reported and signed by Orlando Nick on 07/05/2022 1412 Normal [facility] MG Breast - bilateral Screen ingon 07-27-2021 IMPRESSION: No mammographic evidence of malignancy. BI-RADS: 1: Negative Recommendation: Routine mammography. Recommendation Laterality: Bilateral The current National [employer] Cancer Network and [employer] guidelines recommend women undergo a screening mammogram every year over the age of 40 and continue mammographic screening as long as they are in good health. Screening mammography under age 40 may occur for women who are at increased risk for breast cancer. OLOGY EXAM: MAMMO SCREENING WITH ARLENE BILATERAL, 07/27/2021 13:25 PM CLINICAL INDICATIONS: 51-year-old female for annual mammography. Family history of breast cancer in her mother at age 60 and paternal grandmother. COMPARISON: Mammogram 07/21/2020, 07/02/2019, 04/17/2018, 04/11/2017, 02/07/2016 TECHNIQUE: 2-D MLO and CC views were obtained of the bilateral breasts. 3-D MLO and CC digital tomosynthesis images were also acquired. Computer aided detection was utilized. FINDINGS: The breasts have scattered areas of fibroglandular density. There are no suspicious masses, calcifications, or architectural distortions. RADIOLOGY Sejal Parkinson DO - 07/27/2021 EXAM: MAMMO SCREENING WITH ARLENE BILATERAL, 07/27/2021 13:25 PM CLINICAL INDICATIONS: 51-year-old female for annual mammography. Family history of breast cancer in her mother at age 60 and paternal grandmother. COMPARISON: Mammogram 07/21/2020, 07/02/2019, 04/17/2018, 04/11/2017, 02/07/2016 TECHNIQUE: 2-D MLO and CC views were obtained of the bilateral breasts. 3-D MLO and CC digital tomosynthesis images were also acquired. Computer aided detection was utilized. FINDINGS: The breasts have scattered areas of fibroglandular density. There are no suspicious masses, calcifications, or architectural distortions. IMPRESSION IMPRESSION: No mammographic evidence of malignancy. BI-RADS: 1: Negative Recommendation: Routine mammography. Recommendation Laterality: Bilateral The current National [employer] Cancer Network and [employer] guidelines recommend women undergo a screening mammogram every year over the age of 40 and continue mammographic screening as long as they are in good health. Screening mammography under age 40 may occur for women who are at increased risk for breast cancer. [facility] Radiology Study observation (narrative) [facility] MG Breast - bilateral Screen ingOrdered By: Sejal Parkinson on 07-27-2021 [facility] Work Phone: Vital Signs Date Time Vital Sign Value Performing Clinician Lyric robert 07-26-2022 14:36-0400 Body mass index (BMI) [Ratio] 34.37 kg/m2 Fredis Renuka MANAGER [employer] Work Phone: [facility] 07-26-2022 14:36-0400 Body temperature 97.7 [degF] Fredis Renuka MANAGER [employer] WORKER [employer]TER Work Phone: [facility] 07-26-2022 14:36-0400 Body weight 92.53 kg Fredis Renuka MANAGER [employer] WORKER [employer]TER Work Phone: [facility] 07-26-2022 14:36-0400 Diastolic blood pressure 74 mm[Hg] Fredis Renuka MANAGER [employer] WORKER [employer]TER Work Phone: [facility] 07-26-2022 14:36-0400 Heart rate 81 /min Fredis Renuka MANAGER [employer] WORKER [employer]TER Work Phone: [facility] 07-26-2022 14:36-0400 Systolic blood pressure 161 mm[Hg] Fredis Renuka MANAGER [employer] WORKER [employer]TER Work Phone: [facility] 07-17-2022 08:46-0400 Diastolic blood pressure 80 mm[Hg] MD Kiara Zelaya Work Phone: [facility] 07-17-2022 08:46-0400 Heart rate 69 /min MD Kiara Zelaya Work Phone: [facility] 07-17-2022 08:46-0400 Respiratory rate 16 /min MD Kiara Zelaya Work Phone: [facility] 07-17-2022 08:46-0400 SaO2% (BldA) [Mass fraction] 96 % MD Kiara Zelaya Work Phone: [facility] 07-17-2022 08:46-0400 Systolic blood pressure 132 mm[Hg] MD Kiara Zelaya Work Phone: [facility] 07-17-2022 07:22-0400 Body height 162.56 cm MD Kiara Zelaya Work Phone: [facility] 07-17-2022 07:22-0400 Body temperature 97.9 [degF] MD Kiara Zelaya Work Phone: [facility] 07-17-2022 07:22-0400 Body weight 90.71 kg MD Kiara Zelaya Work Phone: [facility] Encounters Encounter Date Encounter Type Care Provider Facility Start: 09-19-2022 End: 09-20-2022 ambulatory ZACH Marialuisa MCNAMARA Facility: Start: 08-28-2022 End: 08-28-2022 ambulatory WEST Talavera Facility:H1 Start: 08-21-2022 Encounter for preprocedural cardiovascular examination ZACH MCNAMARA [facility] Start: 08-21-2022 Encounter for preprocedural laboratory examination [facility] Marialuisa [facility] Start: 08-16-2022 End: 08-17-[address] KIARA ZELAYA Facility:H1 Start: 08-16-2022 End: 08-17-2022 Encounter for preprocedural laboratory examination DR KIARA ZELAYA Facility:H1 Start: 07-26-2022 ambulatory FREDIS GRAYSON [facility] Start: 07-26-2022 End: 07-26-2022 Office outpatient visit 15 minutes Fredis Grayson APRN-FABRIC WORKER FITTER Work Phone: Division of Surgical Oncology Comment on above: Fibrocystic breast c hanges, bilateral (Primary Dx); Family history of breast cancer; Encounter for screening mammogram for malignant neoplasm of breast Start: 07-26-2022 End: 07-26-2022 Subsequent hospital visit by physician Fredis Grayson APRN-FABRIC WORKER FITTER Work Phone: [facility] Comment on above: Arrived Start: 07-17-2022 End: 07-17-2022 ambulatory Chente Powell Facility:[facility] Start: 07-17-2022 End: 07-17-2022 Admission to same day surgery center MD Kiara Zelaya Work Phone: [facility] Work Phone: Start: 07-17-2022 End: 07-17-2022 ambulatory MD Kiara Zelaya Work Phone: [facility] Work Phone: Start: 06-28-2022 End: 06-29-2022 ambulatory ZACH MCNAMARA Facility: Start: 07-27-2021 End: 07-27-2021 Subsequent hospital visit by physician Fredis Grayson APRN-FABRIC WORKER FITTER Work Phone: [facility] Comment on above: Arrived Procedures Date Procedure Procedure Detail Performing Clinician Start: 07-26-2022 Screening mammograph y bi 2-view breast inc cad Fredis Grayson APRN-FABRIC WORKER FITTER Work Phone: Start: 07-17-2022 Screening colonoscopy M Marialuisa Zelaya Work Phone: Start: 07-27-2021 Screening mammograph y bi 2-view breast inc cad Kathryn Carlin MD Work Phone: Plan of Treatment Date Care Activity Detail Author Start: 08-01-2023 End: 08-01-2023 Patient encounter procedure [facility] Start: 07-27-2023 End: 08-27-2023 MG Breast - bilateral Screening MAMMO SCREENING WITH ARLENE BILATERAL Imaging Routine Encounter for screening mammogram for malignant neoplasm of breast Expected: 07/27/2023 (Approximate), Expires: 08/27/2023 [facility] Comment on above: Expected: 07/27/2023 (Approximate), Expires: 08/27/2023 Start: 07-27-2023 Screening for malign ant neoplasm of breast MAMMOGRAM SCREENING DISCUSSION [facility] Start: 07-27-2022 Screening mammography MAMMOGRA M SCREENING DISCUSSION [facility] Start: 07-27-2022 End: 07-27-2022 Patient encounter procedure [facility] [place] Start: 07-17-2022 [facility] Start: 01-05-2022 Influenza vaccination INFLUENZ A VACCINE (#1) [facility] Start: 01-05-2021 Influenza vaccination INFLUENZ A VACCINE (#1) [facility] Start: 2019 Screening for malign ant neoplasm of lung LUNG CANCER SCREENING [facility] Start: 2019 Zoster vaccine hzv l koki for subcutaneous use ZOSTER (SHINGLES) VACCINE (1 of 2) [facility] Start: 11-15-2015 Tetanus vaccination TETANUS [facility] Start: 2014 Colonoscopy COLORECTAL CAN CER SCREENING DISCUSSION [facility] Start: 2014 Screening for malign ant neoplasm of colon COLORECTAL CANCER SCREENING DISCUSSION [facility] Start: 2009 Fasting lipid profile LIPID SCREENIN G [facility] Start: 2009 Lipid panel LIPID SCREENING [facility] Start: 1990 Screening for malign ant neoplasm of cervix CERVICAL CANCER SCREENING DISCUSSION [facility] Start: 1988 Third diphtheria, tetanus and acellular pertussis (DTaP) vaccination TDAP (ADULT) [facility] Start: 1987 Tetanus vaccination TETANUS [facility] Start: 1984 HIV screening HIV SCREENING DISCUSSION [facility] Start: 1974 COVID-19 VACCINE (1) COVID-19 VACCIN E (1) [facility] Start: 1969 COVID-19 VACCINE (#1) COVID-19 VACCI NE (#1) [facility] Start: 1969 Hepatitis C antibody , confirmatory test HEPATITIS C VIRUS SCREENING [facility] Start: 1969 Hepatitis C screening HEPATITI S C VIRUS SCREENING [facility] Payers Date Payer Category Payer Unknown [id number] 1970 Unknown [id number] [id number] 1970 Unknown [id number] [id number]. [id number] 1969 Unknown [id number] 1969 Unknown [id number] 2.16.84 [id number] 1969 Unknown [id number] 2.16.84 [id number] 1969 Unknown [id number] [id number] [id number] 1960 Self-pay 1960 Unknown [id number] Unknown O [id number] Unknown [id number] [id number] Social History Date Type Detail Facility Start: 02-07-2016 End: 07-26-2022 Tobacco smoking status NHIS Ex-smoker [facility] End: 11-24-2015 History of tobacco use Current smoker [facility] End: 11-24-2015 History of tobacco use Cigarette Smoker [facility] Start: 02-07-2016 End: 07-26-2022 Cigarettes smoked current (pack per day) - Reported 1 [facility] Start: 02-07-2016 End: 07-26-2022 Tobacco use and exposure Smokeless tobacco non-user [facility] Start: 07-27-2021 End: 07-26-2022 Alcohol intake Current non-drinker of alcohol (finding) [facility] Start: 07-27-2021 End: 07-26-2022 History SDOH Financial 5 [facility] Start: 07-27-2021 End: 07-26-2022 History SDOH Food Worry 1 [facility] Start: 07-27-2021 End: 07-26-2022 History SDOH Transport Med 2 [facility] Start: 1970 Sex Assigned At Not on file O NAYAK [facility] Start: 07-17-2021 End: 07-27-2021 Exposure to SARS-CoV-2 (event) Not sure [facility] Start: 1970 Sex Assigned At Female [facility] Goals Date Patient Goal Desired Activity /State Clinical Notes 07-27-2021 to 09-20-2022 Fredis Grayson APRN-BE - 07/26/2022 2:40 PM EDTCollharley Morales RN - 07/26/2022 2:40 PM EDTPatient Juwan Spencer - 07/26/2022 1:40 PM EDT Note Date & Type Note Facility 09-20-2022 Note PROCEDURE: XR FOOT R T MIN 3 VIEWS HISTORY: Pain in right foot COMPARISON: XR foot right 08/08/2022 FINDINGS: BONES:Mechanical fusion of the first metatarsophalangeal joint via dorsal plate and screws; no hardware fracture or loosening. No bone fracture dislocation. Prominent degenerative enthesopathic spurring. SOFT TISSUES:Mild soft tissue swelling. Cast material has been removed. EFFUSION:None visible. OTHER: Negative. IMPRESSION: 1. Stable surgical changes without evidence of hardware failure or change in alignment. Electronically authenticated by: CASIMIRO MICHELE Date: 2022-09-20 06:41 [facility] 08-28-2022 Note PROCEDURE: XR FOOT R T 2V HISTORY: Pain COMPARISON: XR foot right 06/28/2022 FINDINGS: BONES:Multiple intraoperative images demonstrate mechanical fusion of the first metatarsophalangeal joint via dorsal plate and screws. Bone removal from medial side of first metatarsal head consistent with bunionectomy. SOFT TISSUES:Expected post intraoperative findings. EFFUSION:None visible. OTHER: Negative. IMPRESSION: 1. First metatarsophalangeal joint fusion and bunionectomy. Electronically authenticated by: CASIMIRO MICHELE Date: 2022-08-28 11:01 [facility] 08-28-2022 Note PROCEDURE: XR FOOT R T MIN 3 VIEWS HISTORY: Pain COMPARISON: XR foot right 06/28/2022 FINDINGS: BONES:Mechanical fusion of the first metatarsophalangeal joint via dorsal plate and screws. Suspect bunionectomy. Mild degenerative changes of the midfoot. Large calcaneal plantar spur. SOFT TISSUES:Images were obtained to cast material which slightly limits evaluation. EFFUSION:None visible. OTHER: Negative. IMPRESSION: 1. Postoperative mechanical fusion of the first metatarsophalangeal joint, and likely bunionectomy. Electronically authenticated by: CASIMIRO MICHELE Date: 2022-08-28 09:54 [facility] 07-26-2022 History of Present illness Narrative Images from the original note were not included. [id number] Anjali Whatley 07/26/2022 REFERRING/PRIMARY PROVIDER(S) Primary Care Provider: Joelle Conn Surgical oncologist: Swetha Pearson HISTORY OF PRESENT ILLNESS: Anjali Whatley is a 52 y.o. White female established patient who presents to the [facility] today for routine follow up. Chief Complaint Patient presents with Follow-up Patient presents for annual exam and mammogram. Patient denies any new breast concerns. She has fibrocystic breast changes and family history of breast cancer in her mother age 60 yr and paternal grandmother possibly had breast cancer in her 40s. There is no family history of ovarian cancer. 07/26/22 interval update She presents today for routine follow up with mammogram. She denies any new breast concerns, including lumps, skin changes, nipple changes/discharge or pain. Her medical, surgical, social and family history was reviewed and updated. Her allergies and current medications were reviewed and updated. She denies any changes to her medical, surgical, social or family history since her last visit. 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 No Postmenopausal obesity: No Body mass index is 34.37 kg/m . Mammographic density: The breasts have scattered areas of fibroglandular density. Personal History of Benign Atypical Breast Biopsy: No Social History Tobacco Use Smoking status: Former Packs/day: 1.00 Years: 20.00 Pack years: 20.00 Types: Cigarettes Quit date: 11/24/2015 Years since quittin.6 Smokeless tobacco: Never Substance Use Topics Alcohol use: No Alcohol/week: 0.0 standard drinks Drug use: No GENETICS: Ashkenazi Ancestry: No Genetic counseling: No It had previously been discussed that her mother would be the best person to test. She now has dementia and is unable to test and previously was not willing to test. Anjali is not interested in testing herself at this time. Genetic Testing: No Genes tested: Family Members with GeneticTesting: No FAMILY HISTORY: Family History Problem Relation Age of Onset Breast Cancer Mother 60 Colorectal Cancer Father 75 Cancer- Other Maternal Aunt vulvar cancer Breast Cancer Paternal Grandmother age unknown Diabetes Maternal Grandmother Stroke Maternal Grandmother Ovarian Cancer Neg Hx Uterine Cancer Neg Hx Sisters: 1 Maternal aunts: 5 Paternal aunts: 1 Daughters: 1 Family history of breast cancer: Yes Mother age 60 years; alive; untested Paternal grandmother age unknown Family history of ovarian cancer: No Other Cancers as listed below : Yes Colon cancer father age 75 years Vulvar cancer maternal aunt - There is no family history of prostate, uterine, pancreatic, gastric, brain, renal cell or thyroid cancer. - There is no family history of melanoma, sarcoma or leukemia. Osteoporosis: No Stroke: Yes maternal grandmother Blood Clot: Yes maternal grandmother Heart attack: No Thyroid Nodule or Goiter: No Autism: No REVIEW OF SYSTEMS: She denies any recently unintentional weight loss, CP, SOB, cough or severe headache. PHYSICAL EXAMINATION VITAL SIGNS: BP 161/74 Pulse 81 Temp 97.7 F (36.5 C) (Oral) Wt 92.5 kg (204 lb) BMI 34.37 kg/m Smoking Status Former GENERAL: Well nourished, well developed female. No acute distress. HEENT: Head: Normocephalic and atraumatic. Neck: Supple, no thyromegaly. Breasts/chest wall and Regional Lymph Nodes: The Patient was examined in the upright and supine positions. The breasts are symmetrical in appearance without visible skin or nipple changes. Right breast: The patient has no discrete, concerning, palpable right breast masses. Left breast: The patient has no discrete, concerning, palpable left breast masses. There are no suspicious nipple abnormalities, nipple discharge or suspicious skin changes of her breast skin bilaterally. The axillary tails are normal. Lumpy breast parenchyma bilaterally upper outer quadrants of both breasts without any discrete masses. No chest wall abnormalities. The patient has no cervical, supraclavicular or axillary adenopathy bilaterally. Exam stable on 07/26/22 Risk calculation : Her risk was calculated 04/17/18 using these models as below: Benjamín model score: 5 year risk: 1.8% Lifetime risk: 17.3% Devonte Score: Risk by age 49yrs: 0.1% Risk by age 79yrs: 8.1% BILLIE score v.8: IMAGING: EXAM: MAMMO SCREENING WITH ARLENE BILATERAL, 07/26/2022 14:00 PM CLINICAL INDICATIONS: 52-year-old female for screening mammogram COMPARISON: Multiple prior mammograms including the most recent dated July 27, 2021 TECHNIQUE: 2-D MLO and CC views were obtained of the bilateral breasts. 3-D MLO and CC digital tomosynthesis images were also acquired. Computer aided detection was utilized. FINDINGS: The breasts have scattered areas of fibroglandular density. There are no suspicious masses, calcifications, or architectural distortions. IMPRESSION IMPRESSION: No mammographic evidence of malignancy. BI-RADS: 1: Negative Recommendation: Routine mammography. Recommendation Laterality: Bilateral The current National Comprehensive Cancer Network and [employer] guidelines recommend women undergo a screening mammogram every year over the age of 40 and continue mammographic screening as long as they are in good health. Screening mammography under age 40 may occur for women who are at increased risk for breast cancer. I personally viewed and interpreted these images and I have reviewed and approved this report. Electronically Signed By: Jacek Garrison MD IMPRESSION/PLAN: IMPRESSION: She is 52 y.o. female with bilateral fibrocystic breast changes and family history of breast cancer. Her imaging was reviewed with her in detail. There is no evidence of malignancy. The patient was reassured as to the benign nature of her clinical exam and imaging. PLAN: Recommendations: She will continue with annual screening mammogram and annual clinical breast exams. Chemoprevention discussion: She does not currently meet criteria for this intervention, with 5yr BENJAMÍN <3% and 10yr BILLIE <5%. Lifestyle changes: The patient was given information in her AVS regarding health promotion and lifestyle recommendations for breast health. Followup: Return in about 1 year (around 07/27/2023) for Mammo and same day HR return with Fredis Grayson.. She was encouraged on SBA. She was advised to reach out as needed with any new or worsening concerns. Patient offered a medical route cdl driver for sensitive exam. Patient declined route cdl driver. documented in this encounter [facility] 07-26-2022 Instructions MELVA Wang - 07/26/2022 2:40 PM EDT Health Promotion/Lifestyle Recommendations for Breast Health Self Breast Awareness: We do recommend that you continue to perform monthly breast self-exams. If you are menstruating, we would recommend after your cycle has completed. If you are post-menopausal, we recommend that you pick a day of the month to do your monthly exam. If you do not have breasts, it is important to examine your skin, chest wall, and underarms for any new masses or skin lesions. If you find any areas of concern, please call us to discuss or be seen. Nutrition: Below are some guidelines for health lifestyle that we recommend. Adopt a plant based diet. Aim to make a majority of your foods (2/3 of your diet) from plant based sources. This includes, fruits, vegetables, whole grains, nuts, legumes, beans, and seeds. Try to get in a rainbow of fruits/vegetables each day to maximize your health benefits. Strive for weight management Choose healthy fats in moderation Good rule of thumb is 20% of total calories from fat. Focus should be on choosing the right fats Eat more monounsaturated fats (olive/canola oil, nuts, avocado) and omega-3 polyunsaturated fats (cold-water fish, walnuts). Limit saturated fats (animal fats, butter, dairy). Avoid trans fats (partially hydrogenated vegetable oil, commercial baked goods). Eat in moderation - omega-6 polyunsaturated fats (vegetable oils) Maintain good control of blood sugars. Avoid simple carbohydrates which make your blood sugar rise high and quickly. (the whites : Breads, pasta, rice, potatoes, candy and sweets, table sugar, soda, juice). Choose complex carbohydrates which provide a gradual release of sugar and energy (whole grains, whole fruits, sweet potatoes, corn, peas, winter squash). Include a healthy protein when consuming carbohydrates to help further control blood sugar levels, decrease fatigue and help to feel full longer (lean meats, fish, skinless poultry, nuts and nut butters (i.e. Peanut butter), beans and braxton dip (i.e. hummus) Soy: Moderate intake of whole soy foods as part of an overall healthy diet has not shown a risk for breast cancer. Choosing soy, up to 2-3 servings of whole soy foods/day as prat of a plant-based dietary pattern is reasonable. However, the safety of concentrated soy in the form of soy protein powders, soy protein isolates, or soy supplements is unknown and we recommend you avoid these at this time. Weight Management: Weight management is important for your overall health as well as for breast health. To help you reach weight management goals we have many resources including a registered dietitian and physical therapy department who will develop a plan to help you reach your goals. Alcohol Consumption: We recommend that you drink alcohol in moderation, if at all. You should limit alcohol consumption to no more than one alcoholic drink per day. Smoking: If you are currently a smoker, we recommend that you stop smoking. There is evidence that smoking increases the risk of breast cancer recurrence. Please speak to your health care providers regarding this as there are many programs offered here at the [facility] for assistance with smoking cessation. Exercise: Studies have shown that 30 minutes of exercise 3-5 times/week can have positive benefits. Exercise also promotes heart health and overall wellness. Recommended exercise prescription should include the following: Frequency: 5 days per week Duration: 30 minutes minimum per day Moderate intensity: Examples include brisk walked (treadmill speed of 2.9-3.2mph), vigorous housework or dancing Always be able to carry on a conversation while you exercise Vary your activity to reduce overuse injuries to muscles and joints to increase your enjoyment level documented in this encounter [facility] 07-26-2022 History of Present illness Narrative Patient offered a medical route cdl driver for sensitive exam. Pt declined documented in this encounter [facility] 07-17-2022 History and physical note Note Date/Time July 17, 2022 8:0 3am [facility] [address] [place] [address] Gastroenterology H&P Signed Patient: Anjali Whatley MR#: [id number] : 1970 Acct:[id number] Age/Sex: 52 / F Adm Date: 3 Loc: Room: Type: [facility] Attending Dr: Chente Powell MD Copies to: MD Kiara Flores MD~ Date of Service: 07/17/2022 HISTORY & PHYSICAL: Patient's history with special attention to the cardiovascular, pulmonary systems and the current problem was reviewed with the patient immediately prior to the procedure. Present medications and doses reviewed in the EMR. Allergies and pertinent laboratory tests were also reviewedat this time in the EMR. The physical examination, as below, was then performed. Indication, assessment and HPI: 52-year-old female presents for screening colonoscopy Family history of GI malignancy? Yes, father diagnosed with CRC in his 70s PHYSICAL EXAMINATION Mouth and Pharynx : Moist mucus membranes, normal dentition Cardiac: Regular rate, regular rhythm Pulmonary: Clear to auscultation bilaterally, no wheezing Neurological: Alert and oriented x3, no focal deficits noted Abdomen: Abdomen soft, non-tender REVIEW OF SYSTEMS Constitutional: Denies malaise, fevers Cardiovascular: Denies chest pain, palpitations Respiratory: Denies shortness of breath, wheezing Gastrointestinal: Per HPI Genitourinary: Denies dysuria, polyuria Musculoskeletal: Denies joint swelling, joint stiffness Neurological: Denies numbness, tingling Integumentary: Denies rashes, skin lesions Endocrine: Denies fatigue, weight loss Written informed consent obtained from the patient. Risks (including but not limited to perforation, infection, bloating, bleeding, need for emergent surgeryand loss of life), benefits and alternatives explained and questions answered. The patient verbalized understanding. Based on history patient is an appropriate candidate for the procedure. Chente Powell MD Documented By: Chente Powell MD 07/17/22802 Signed By: <Electronically signed by Chente Powell MD> 07/17/22802 [facility] Work Phone: [phone] 845-930603-13-2023 [facility] NotePROCEDURE: XR FOOT RT MIN 3 VIEWS HISTORY: Pain in right foot COMPARISON: None. FINDINGS: BONES:Prominent first metatarsal bunion formation and mild degenerative changes of the metatarsophalangeal joint. Mild degenerative joint disease of the midfoot. Calcaneal degenerative enthesophytes. SOFT TISSUES:No visible soft tissue swelling. EFFUSION:None visible. OTHER: Negative. IMPRESSION: 1. Prominent bunion formation, likely contributing to patient's symptoms. 2. Mild degenerative joint disease of first metatarsophalangeal joint. Electronically authenticated by: CASIMIRO MICHELE Date: 2022-06-29 10:12[facility] [id number] History of Present illness Narrative* Debbie Srinivasan - 07/27/2021 12:40 PM EDT Patient offered a medical route cdl driver for sensitive exam. Pt declined [facility] Diagnosis Bilateral fibrocystic breast changes [facility]No assessment information available [facility] Work Phone: Evaluation note* Diagnosis Fibrocystic breast changes, bilateral- Primary Family history of breast cancer Family history of malignant neoplasm of breast Encounter for screening mammogram for malignant neoplasm of breast Other screening mammogram [facility] encounter [facility] Diagnosis Encounter for screening mammogram for breast cancer [facility] Additional Instructions DISCHARGE INSTRUCTIONS FOR COLONOSCOPY WHAT TO EXPECT: - You may feel full, gassy or cramping after your procedure. In some cases, this may be from a few hours to a day. Walking may help relieve the discomfort. - You should begin to recover from anesthesia within 1 hour of the procedure, however may feel groggy for the next 24 hours. DO's AND DON'Ts: - Call your doctor right away if you have a hard abdomen, severe pain, are passing lots of bright red blood or clots. - Call your doctor if you develop any rashes, hives or difficulty breathing. - Let your doctor know if you have not had a bowel movement by 3 days after your procedure. - If you take 81 mg aspirin for your heart it is safe to resume this medication. - If you take other blood thinner medications your doctor will instruct you when these can safely be resumed. - Do NOT drive for 24 hours. - Do NOT operate machinery such as power tools, lawn mowers, snow blowers, sewing machines, etc. for 24 hours. - Avoid alcoholic beverages and drugs for allergies, nerves, or sleep. - Do NOT stay alone. Do NOT leave your child unattended. - Do NOT make important personal or business decisions or sign any legal documents. - Eat solid foods and drink liquids in smaller amounts than usual until normal appetite returns. If you should experience an upset stomach, liquids high in sugar content (soda, Janak-Aid, non-acid juices) are recommended. - You can resume normal activities tomorrow. FOLLOW UP & RECOMMENDATIONS: -Follow-up with Dr. Powlel as needed -Notify the doctor if you have any problems. -Repeat colonoscopy in 10 years. -Follow up with PCP. -Office number [phone].[facility] Work Phone: Reason for Referral Specialty Diagnoses / Procedures Referred By Sae adam Referred To Contact Diagnoses Bilateral fibrocystic breast changes Procedures MAMMO SCREENING WITH ARLENE BILATERAL Kathryn Carlin MD [address] [facility] [facility], [address] [place] [address] Referral ID Status Reason Start Date Expiration Date V isits Requested Visits Authorized [id number] New Request 07/21/2020 08/15/2021 1 1 Specialty Diagnoses / Procedures Referred By Sae adam Referred To Contact Diagnoses Encounter for screening mammogram for malignant neoplasm of breast Procedures MAMMO SCREENING WITH ARLENE BILATERAL Fredis Grayson, MANAGER [employer]IC WORKER FITTER [address] [place] [id number] Referral ID Status Reason Start Date Expiration Date V isits Requested Visits Authorized [id number] New Request 07/26/2022 08/20/2023 1 1 Specialty Diagnoses / Procedures Referred By Sae adam Referred To Contact Diagnoses Encounter for screening mammogram for breast cancer Procedures MAMMO SCREENING WITH ARLENE BILATERAL Fredis Grayson, MANAGER [employer]IC WORKER FITTER [address] [place] [id number] Referral ID Status Reason Start Date Expiration Date V isits Requested Visits Authorized [id number] Pending Review 07/27/2021 08/21/2022 1 1 Summary Purpose Family History No Family History Records Found Relationship Condition Age at Onset Recorded Date/T jacek father Malignant neoplasm of colon Unknown Not Specified Malignant neoplasm of breast Unknown Advance Directives No Advanced Directives Records Found Advance Directive Response Recorded Date/ Time Advance Directives No July 13 1:49pm Chief Complaint and Reason for Visit Chief Complaint Screening Additional Source Comments Reason for Visit (unrecogniz ed section and content) Specialty Diagnoses / Procedures Referred By Sae adam Referred To Contact Diagnoses Bilateral fibrocystic breast changes Procedures MAMMO SCREENING WITH ARLENE BILATERAL Kathryn Carlin MD [address] [facility] [address], [address] [place] [address] Referral ID Status Reason Start Date Expiration Date V isits Requested Visits Authorized [id number] New Request 07/21/2020 08/15/2021 1 1 Reason Comments Follow-up Patient presents for annual exam and mammogram. Patient denies any new breast concerns. Specialty Diagnoses / Procedures Referred By Sae adam Referred To Contact Diagnoses Encounter for screening mammogram for breast cancer Procedures MAMMO SCREENING WITH ARLENE BILATERAL Fredis Grayson, MANAGER [employer] WORKER FITTER [address] [place] [address] Referral ID Status Reason Start Date Expiration Date V isits Requested Visits Authorized [id number] Pending Review 07/27/2021 08/21/2022 1 1 Care Teams (unrecognized sec tion and content) Client Hr Manager Relationship Specialty Start Date End Date Joelle Conn MD [address] [facility] [place] [address] PCP - General Family Medicine 10/25/11 Team Status: Active Member Role Status Dates Kiara Zelaya MD Primary Care Provider Active Team Status: Inactive Member Role Status Dates Chente Powell MD Attending Provider Active Kiara Zelaya MD Primary Care Provider Active Client Hr Manager Relationship Specialty Start Date End Date Joelle Conn MD [address] [facility] [place] [address] PCP - General Family Medicine 10/25/11 Client Hr Manager Relationship Specialty Start Date End Date Joelle Conn MD [address] [place] [address] PCP - General Family Medicine 10/25/11 INFORMATION SOURCE (unrecogn ized section and content) DATE CREATED AUTHOR 07/07/2022 [facility] dical Specialist DATE CREATED AUTHOR AUTHOR'S ORGANIZ ATION 07/24/2022 [facility] DATE CREATED AUTHOR AUTHOR'S ORGANIZ ATION 07/27/2022 [facility] DATE CREATED AUTHOR AUTHOR'S ORGANIZ ATION 09/20/2022 [facility] camilaal FOR RECORDS PERTAINING TO PATIENTS WHO ARE OR HAVE BEEN ENROLLED IN A CHEMICAL DEPENDENCY/SUBSTANCEABUSE PROGRAM, SOME INFORMATION MAY BE OMITTED. This clinical summary was aggregated from multiple sources. Caution should be exercised in using it in the provision of clinical care. This summary normalizes information from multiple sources, and as a consequence, information in this document may materially change the coding, format and clinical context of patient data. In addition, data may be omitted in some cases. CLINICAL DECISIONS SHOULD BE BASED ON THE PRIMARY CLINICAL RECORDS. [facility]. provides no warranty or guarantee of the accuracy or completeness of information in this document.
== END 2023-06-27 10:25 | disposition home or self-care (01) ==
LOC: EC 10:24
PROVIDERS: PCP Nurse Practitioner Family; Visit Provider Podiatrist Foot & Ankle Surgery
DX: M20.11 Hallux valgus (acquired), right foot (principal)
CPT/HCPCS: 73630

== ENCOUNTER 2024-06-25 09:12 | Outpatient (OUT) | payer BC, SELFPAY ==
--- NOTE | 2024-06-25 | XR_ITS ---
[facility] [place] [id number] Patient Name: ANALY BARNES MRN: [id number] date: 1970 Sex: F Assigned Patient Location: [facility] Current Patient Location: [facility] Accession/Order Number: [id number] Exam Date: 06/25/2024 10:50 Report Date: 06/25/2024 11:02 At the request of: ZACH MCNAMARA DPMary Procedure: XR foot RT min 3V RIGHT FOOT - 3 views COMPARISON: 06/27/2023 CLINICAL DATA: Right foot pain. Previous fusion at the first toe AP, lateral and oblique views were obtained. Fusion is again seen at the first metatarsal phalangeal joint with plate and screws. Appearance is unchanged. Similar degenerative changes are seen, including calcaneal spurs. There is no acute fracture or dislocation. There are no significant soft tissue abnormalities. XR/XR foot RT min 3V IMPRESSION: STABLE RIGHT FOOT. Impression dictated by: Gwen Mendoza M.D.06/25/2024 11:02 AM Dictation Location: [place] Electronically authenticated by: [id number] Y Date: 06/25/2024 11:02
--- OUTSIDE RECORDS SUMMARY | 2024-06-25 09:22 | XMS_ITS | CCD ---
Author Organization [facility] Care Team Providers Care Customer Service Consultant Name Role Phone Joelle Conn MD Primary Care Provider [phone] MD Chente Powell Attending Provider [phone] MD Kiara Zelaya Primary Care Provider Chente Powell Admitting Unavailable Chente Powell Attending Unavailable Kiara Zelaya Primary Care Unavailable Joelle Conn MD Primary Care Provider [phone] ROSCOE ., WEST Admitting Unavailable ROSCOE ., WEST Attending Unavailable Casimiro Michele Consulting Unavailable DR KIARA ZELAYA Primary Care Unavailable ZACH MCNAMARA Consulting Unavailable BERNARDO CROSS Consulting Unavailable DANIAL SALINAS Consulting Unavailable ROSCOE ., WEST Consulting Unavailable LORENZO JACOBS Consulting Unavailable NELDAEWEST Consulting Unavailable HIGHLANDER, PETER D Consulting Unavailable ARMANDOANDER, PETER D Attending Unavailable ANDERS, PETER D Admitting Unavailable DR KIARA ZELAYA Primary Care Unavailable ARMANDOANDER, PETER Marialuisa Attending Unavailable HIGHLANDER, PETER D Admitting Unavailable GoerCasimiro Consulting Unavailable HIGHLANDER, PETER D Consulting Unavailable DR KIARA ZELAYA Primary Care Unavailable HIGHLANDER, PETER D Consulting Unavailable HIGHLANDER, PETER D Attending Unavailable HIGHLANDER, PETER Marialuisa Admitting Unavailable Joelle Conn MD Primary Care Provider FREDIS GRAYSON Referring Unavailable JOELLE CONN A Primary Care Unavailable FREDIS GRAYSON Attending Unavailable FREDIS GRAYSON Referring Unavailable JOELLE CONN A Primary Care Unavailable FREDIS GRAYSON Attending Unavailable Angel METHODS ANALYST, Jessica R Unavailable Kiara Zelaya MD Primary Care Provider KIARA ZELAYA Attending Unavailable AMINA VASQUEZ Referring Unavailable TRE JOSUE Attending Unavailable AMINA VASQUEZ Referring Unavailable KIARA ZELAYA Attending Unavailable KIARA ZELAYA Attending Unavailable KIARA ZELAYA Attending Unavailable KIARA ZELAYA Referring Unavailable Allergies Allergy Classification Reported Allergen(s) Allergy Type Date of Onset Reaction(s) Facility (11 sources) Morphine Drug Allergy 07-12-2011 [facility] Work Phone: (1 source) Morphine Drug Allergy 07-17-2022 [facility] Repository (1 source) Morphine Drug Allergy 08-16-2022 [facility] Repository Medications Current Medications Medication Drug Class(es) Dates Sig (Normalized) Sig (Original) 12 hr buPROPion hydrochloride 90 mg / naltrexone hydrochloride 8 mg extended release oral tablet (1 source) Opioid Antagonist, Aminoketone Start: 07-17-2022 take 1 tablet by mouth twice daily Naltrexone-Bupro pion (Contrave) 8-90 mg Tablet Extended Release Active 1 TAB PO Twice daily July 17, 2022 12:00am Calcium Carbonate / Vitamin D (5 sources) Calcium Carbonate-Vitami n D (CALCIUM 600 + D PO) Take by mouth daily. Active Calcium Carbonat e-Vitamin D (CALCIUM 600 + D PO) Take by mouth daily. 0 Active dexamethasone 1 mg/ml / neomycin 3.5 mg/ml / polymyxin b 94492 unt/ml ophthalmic suspension (5 sources) Aminoglycoside Antibacterial, Polymyxin-class Antibacterial, Corticosteroid Start: 06-12-2024 take 5 drop(s) into the eye(s) twice daily as needed [id number] (Maxitrol) 0.1 % ophthalmic suspension Indications: Chronic otitis externa of both ears, unspecified type 5 drops to bilateral ears BID PRN 5 mL 11 06/12/2024 Active docosahexaenoic acid 1000 mg / omega-3 acid ethyl esters (retirement) 300 mg delayed release oral capsule (5 sources) Maben-3 Fatty Ac ids (FISH OIL) [address] Take by mouth daily. Active Fish Oils (6 sources) take 1 capsule by mouth once daily omega-3 (fish oil) 435 MG capsule Take 1 capsule by mouth 1 (one) time each day. Active fluocinonide 0.5 mg/ml topical solution (2 sources) Corticosteroid Start: 06-19-2024 fluocinonide (Lidex) 0.05 % external solution Indications: Other alopecia areata Apply to affected areas on the scalp, up to twice a day when flared, 30 day supply 60 mL 11 06/19/2024 Active Magnesium (7 sources) Start: 07-17-2022 take 250 mg by mouth once daily Magnesium Active 250 MG PO Daily July 17, 2022 12:00am take 1 tablet by mouth once mady y magnesium 200 MG tablet Take 1 tablet by mouth 1 (one) time each day at the same time. Active magnesium gluconate 500 mg oral tablet (5 sources) take 1 tablet by mouth once daily Magnesium Gluconate 500 MG PO TABS Take 1 tablet by mouth daily. Active meloxicam (4 sources) Nonsteroidal Anti-inflammatory Drug MELOXICAM PO Take by mouth as needed. Active MELOXICAM PO Dontrell e by mouth as needed. 0 Active Multiple Vitamin (Multi Vitamin Daily) tablet (6 sources) take 1 tablet by radha th once daily Multiple Vitamin (Multi Vitamin Daily) tablet Take 1 tablet by mouth 1 (one) time each day at the same time. Active Multiple Vitamin (MULTI-VITAMIN PO) (5 sources) Multiple Vitamin (MULTI-VITAMIN PO) Take by mouth daily. Active Multiple Vitamin (MULTI-VITAMIN PO) Take by mouth daily. 0 Active Multivitamin preparation (1 source) Start: 07-17-2022 take 1 tablet by mouth once daily Multivitamin Active 1 TAB PO Daily July 17, 2022 12:00am Naltrexone-buPROPion HCl (CONTRAVE PO) (4 sources) Naltrexone-buPRO Pion HCl (CONTRAVE PO) Take by mouth 2 times daily. Active Naltrexone-buPRO Pion HCl (CONTRAVE PO) Take by mouth 2 times daily. 0 Active Maben 5-Ewk-Tcd-Fish Oil (Fish Oil) 60-90-500 mg Capsule (1 source) Start: 07-17-2022 take 1 capsule by mouth once daily Maben 5-Hwu-Uun-Fish Oil (Fish Oil) 60-90-500 mg Capsule Active 1 CAP PO Daily July 17, 2022 12:00am varenicline 1 mg oral tablet (5 sources) Partial Cholinergic Nicotinic Agonist Start: 06-12-2024 End: 09-27-2024 take 0.5 tablet by mouth once daily, then take 0.5 tablet by mouth twice daily, then take 1 tablet by mouth twice daily varenicline (Chantix) 1 MG tablet Indications: Tobacco abuse Take 0.5 tablets (0.5 mg) by mouth Daily for 3 days, THEN 0.5 tablets (0.5 mg) 2 (two) times a day for 4 days, THEN 1 tablet (1 mg) 2 (two) times a day. Take with full glass of water.. 206 tablet 06/12/2024 09/27/2024 Active Problems Active Problems Problem Classification Problem Date Documented Da te Episodic/Chronic Acquired foot deformities (5 sources) Hallux valgus (acquired), right foot; Translations: [HALLUX VALGUS ACQUIRED RIGHT FOOT] Onset: 08-21-2022 Chronic Acquired foot deformities (2 sources) Other deformities of toe(s) (acquired), right foot; Translations: [Bunion of right foot] Onset: 07-02-2022 Episodic Allergic reactions (6 sources) Flexural eczema; Translations: [Flexural eczema] Onset: 09-19-2022 09-19-2022 Chronic Disorders of lipid metabolism (6 sources) Hypertriglyceridem ia; Translations: [Pure hyperglyceridemia] Onset: 09-19-2022 09-19-2022 Chronic Essential hypertension (1 source) Essential (primary) hypertension; Translations: [ESSENTIAL PRIMARY HYPERTENSION] Onset: 08-21-2022 Chronic Miscellaneous mental health disorders (6 sources) Primary insomnia; Translations: [Primary insomnia] Onset: 09-19-2022 09-19-2022 Chronic Nonmalignant breast conditions (7 sources) Fibrocystic changes of bilateral breasts; Translations: [Diffuse cystic mastopathy of right breast] Onset: 08-07-2023 Chronic Osteoarthritis (13 sources) Primary osteoarthritis, right ankle and foot; Translations: [Arthritis of left knee] Onset: 07-02-2022 Resolved: 10-02-2023 09-19-2022 Chronic Other connective tissue disease (4 sources) Pain in right foot; Translations: [PAIN IN RIGHT FOOT] Onset: 06-28-2022 Episodic Other ear and sense organ disorders (6 sources) Chronic otitis externa of left external auditory canal; Translations: [Unspecified chronic otitis externa, left ear] Onset: 09-19-2022 3 Chronic Other ear and sense organ disorders (2 sources) Bilateral external auditory canal chronic otitis externa; Translations: [Unspecified chronic otitis externa, bilateral] 06-12-2024 Chronic Other nervous system disorders (6 sources) Chronic pain; Translations: [Other chronic pain] Onset: 09-19-2022 09-19-2022 Chronic Other nutritional; endocrine; and metabolic disorders (5 sources) Obesity; Translations: [Obesity, unspecified] Onset: 02-07-2016 02-07-2016 Chronic Other nutritional; endocrine; and metabolic disorders (6 sources) Obese class I; Translations: [Obesity (BMI 30.0-34.9)] Onset: 09-19-2022 09-19-2022 Chronic Other nutritional; endocrine; and metabolic disorders (6 sources) Obesity caused by energy imbalance; Translations: [Other obesity due to excess calories] Onset: 09-19-2022 09-19-2022 Chronic Other skin disorders (6 sources) Alopecia areata; Translations: [Alopecia areata, unspecified] 06-12-2024 Episodic Phlebitis; thrombophlebitis and thromboembolism (1 source) Personal history of other venous thrombosis and embolism; Translations: [PERS HX OTH VENOUS THROMBOSIS AND EMBO] Onset: 08-30-2022 Episodic Residual codes; unclassified (1 source) Acquired absence of other specified parts of digestive tract; Translations: [ACQ ABSENCE OTH PART DIGESTV TRACT] Onset: 08-30-2022 Episodic Residual codes; unclassified (1 source) Acquired absence of both cervix and uterus; Translations: [ACQUIRED ABSENCE BOTH CERVIX AND UTERUS] Onset: 08-30-2022 Episodic Residual codes; unclassified (1 source) Family history of malignant neoplasm of breast; Translations: [Family history of malignant neoplasm of breast] Onset: 08-07-2023 Episodic Residual codes; unclassified (2 sources) Tobacco user; Translations: [Tobacco use] 06-12-2024 Episodic Screening and history of mental health and substance abuse codes (1 source) Personal history of nicotine dependence; Translations: [PERSONAL HISTORY OF NICOTINE DEPEND] Onset: 08-30-2022 Episodic Spondylosis; intervertebral disc disorders; other back problems (12 sources) Lumbosacral spondylosis without myelopathy; Translations: [Spondylosis without myelopathy or radiculopathy, lumbosacral region] Onset: 09-19-2022 Resolved: 10-02-2023 09-19-2022 Chronic Thyroid disorders (10 sources) Thyroid nodule; Translations: [Nontoxic single thyroid nodule] Onset: 09-19-2022 09-19-2022 Chronic Unclassified (1 source) Encounter for screening for malignant neoplasm of colon; Translations: [Encounter for screening for malignant neoplasm of colon] Onset: 07-17-2022 Past or Other Problems Problem Classification Problem Date Documented Da te Episodic/Chronic Calculus of urinary tract (6 sources) Kidney stone; Translations: [Calculus of kidney] Onset: 09-19-2022 09-19-2022 Episodic Joint disorders and dislocations; trauma-related (6 sources) Derangement of left knee; Translations: [Unspecified internal derangement of left knee] Onset: 09-19-2022 Resolved: 10-02-2023 10-02-2023 Chronic Mood disorders (5 sources) Mood disorders Onset: 07-27-2021 Resolved: 08-07-2023 07-27-2021 Other connective tissue disease (6 sources) Impingement syndrome of right shoulder region; Translations: [Impingement syndrome of right shoulder] Onset: 09-19-2022 09-19-2022 Episodic Other gastrointestinal disorders (6 sources) Slow transit constipation; Translations: [Slow transit constipation] Onset: 09-19-2022 09-19-2022 Episodic Other gastrointestinal disorders (6 sources) Dysphagia; Translations: [Dysphagia, unspecified] Onset: 09-19-2022 09-19-2022 Episodic Other gastrointestinal disorders (5 sources) Pneumatosis cystoides intestinalis; Translations: [Other specified diseases of intestine] Onset: 12-01-2018 06-12-2024 Episodic Other non-traumatic joint disorders (6 sources) Pain in right shoulder; Translations: [Pain in joint, shoulder region] Onset: 09-19-2022 09-19-2022 Episodic Other nutritional; endocrine; and metabolic disorders (6 sources) Drug-induced obesity; Translations: [Drug-induced obesity] Onset: 09-19-2022 Resolved: 10-02-2023 10-02-2023 Chronic Other screening for suspected conditions (not mental disorders or infectious disease) (20 sources) Breast neoplasm screening status; Translations: [Encounter for other screening for malignant neoplasm of breast] Onset: 10-25-2011 Resolved: 07-27-2021 12-07-2014 Episodic Residual codes; unclassified (13 sources) Family history of breast cancer; Translations: [Family history of malignant neoplasm of breast] Onset: 07-05-2013 07-05-2013 Episodic Residual codes; unclassified (6 sources) History of hysterectomy for benign disease; Translations: [Acquired absence of both cervix and uterus] Onset: 09-19-2022 09-19-2022 Episodic Results Test Name Value Interpretation Reference Range Facility US THYROIDon 06-17-2024 US THYROID EXAM: Thyroid Ultrasound. REASON FOR EXAM: Follow up nodules. COMPARISON: Thyroid ultrasound October 11, 2022. TECHNIQUE: Grayscale and color Doppler ultrasound is performed. FINDINGS: Right: In the medial right gland, there is a 6 x 3 x 6 mm hypoechoic nodule. In the mid gland, there is a solid mostly isoechoic round nodule measuring 7 x 6 x 5 mm. Left: Ovoid cyst is noted measuring 8 mm in size. There is a round slightly lobulated heterogeneous solid nodule in the mid to lower gland measuring 5 x 4 x 6 mm. Isthmus: In the right isthmus, there is a solid heterogeneous isoechoic nodule measuring 8 x 8 x 5 mm. Measurements: Right Lobe: 4.9 x 2.2 x 1.4 cm Nodule 1: 0.6 x 0.6 x 0.3 cm Nodule 2: 0.6 x 0.5 x 0.7 cm Left Lobe: 5.2 x 1.7 x 0.5 cm Nodule 1: 0.9 x 0.8 x 0.3 cm Nodule 2: 0.6 x 0.5 x 0.4 cm Isthmus: 0.3 cm Nodule: 0.8 x 0.8 x 0.5 cm IMPRESSION: 1. Stable subthreshold thyroid nodules, TI-RADS 3. 2. No specific follow-up recommendations as per ACR TI-RADS guidelines. Reference: ACR white paper 2017. Followup: TR3 lesion: Thyroid US at 1, 3 and 5 years. TR4 lesion: Thyroid US at 1, 2, 3 and 5 years. TR5 lesion: Thyroid ultrasound every year for up to 5 years. *This report is generated using voice recognition reporting ([employer]). On occasion Power[employer] erroneously drops words from the report or replaces the spoken word with similar sounding words. Please call with any questions/concerns regarding this report.* Dictated and transcribed 06/17/2024/tm This report has been electronically signed and approved by the interpreting radiologist. Normal Not Available MAMMO SCREENING WITH ARLENE BI LATERALon 08-07-2023 MAMMO SCREENING WITH ARLENE BILATERAL EXAM: MAMMO SCREENING WITH ARLENE BILATERAL, 08/07/2023 12:18 PM CLINICAL INDICATIONS: Screening COMPARISON: July 26, 2022, July 27, 2021, July 21, 2020, July 02, 2019 TECHNIQUE: 3-D MLO and CC digital tomosynthesis images were obtained of the bilateral breasts. Synthetic 2-D images were generated from the tomosynthesis data. Computer aided detection was utilized. FINDINGS: Breast Density: The breasts have scattered areas of fibroglandular density. There are no suspicious masses, calcifications, or architectural distortions. IMPRESSION: No mammographic evidence of malignancy. BI-RADS: 1: Negative Recommendation: Routine mammography. Recommendation Laterality: Bilateral The current National [employer] Network and [employer] guidelines recommend women undergo a screening mammogram every year over the age of 40 and continue mammographic screening as long as they are in good health. Screening mammography under age 40 may occur for women who are at increased risk for breast cancer. Table formatting from the original result was not included. MAMMO STANDARD RISK Normal [facility] MG Breast - bilateral Screen ingon 08-07-2023 IMPRESSION: No mammographic evidence of malignancy. BI-RADS: 1: Negative Recommendation: Routine mammography. Recommendation Laterality: Bilateral The current National [employer] Network and [employer] guidelines recommend women undergo a screening mammogram every year over the age of 40 and continue mammographic screening as long as they are in good health. Screening mammography under age 40 may occur for women who are at increased risk for breast cancer. OLOGY EXAM: MAMMO SCREENING WITH ARLENE BILATERAL, 08/07/2023 12:18 PM CLINICAL INDICATIONS: Screening COMPARISON: July 26, 2022, July 27, 2021, July 21, 2020, July 02, 2019 TECHNIQUE: 3-D MLO and CC digital tomosynthesis images were obtained of the bilateral breasts. Synthetic 2-D images were generated from the tomosynthesis data. Computer aided detection was utilized. FINDINGS: Breast Density: The breasts have scattered areas of fibroglandular density. There are no suspicious masses, calcifications, or architectural distortions. RADIOLOGY Jacek Garrison MD - 08/07/2023 EXAM: MAMMO SCREENING WITH ARLENE BILATERAL, 08/07/2023 12:18 PM CLINICAL INDICATIONS: Screening COMPARISON: July 26, 2022, July 27, 2021, July 21, 2020, July 02, 2019 TECHNIQUE: 3-D MLO and CC digital tomosynthesis images were obtained of the bilateral breasts. Synthetic 2-D images were generated from the tomosynthesis data. Computer aided detection was utilized. FINDINGS: Breast Density: The breasts have scattered areas of fibroglandular density. There are no suspicious masses, calcifications, or architectural distortions. IMPRESSION IMPRESSION: No mammographic evidence of malignancy. BI-RADS: 1: Negative Recommendation: Routine mammography. Recommendation Laterality: Bilateral The current National [employer] Cancer Network and [employer] guidelines recommend women undergo a screening mammogram every year over the age of 40 and continue mammographic screening as long as they are in good health. Screening mammography under age 40 may occur for women who are at increased risk for breast cancer. [facility] Radiology Study observation (narrative) [facility] MG Breast - bilateral Screen ingOrdered By: Jacek Garrison on 08-07-2023 [facility] Work Phone: CBC AUTO DIFFon 08-28-2022 BASO # 0.1 103/ul Normal 0.0-0.1 [facility] Comment on above: Performed By: #### C BC #### [facility] [address] [place] [address] Dr. Eric Brady Basophils/100 WBC (Bld) 0.7 % Normal 0.2-2.0 [facility] Comment on above: Performed By: #### C BC #### [facility] [address] [place] [address] Dr. Eric Brady EO # 0.2 103/ul Normal 0.0-0.7 [facility] Comment on above: Performed By: #### C BC #### [facility] [address] [place] [address] Dr. Eric Brady Eosinophils/100 WBC (Bld) 2.3 % Normal 0.9-7.0 [facility] Comment on above: Performed By: #### C BC #### [facility] [address] [place] [address] Dr. Eric Brady Erythrocyte distribution width (RBC) [Ratio] 12.9 % Normal 11.0-15.0 [facility] Comment on above: Performed By: #### C BC #### [facility] [address] [place] [address] Dr. Eric Brady Hematocrit (Bld) [Volume fraction] 40.7 % Normal 36.0-48.0 [facility] Comment on above: Performed By: #### C BC #### [facility] [address] [place] [address] Dr. Eric Brady Hemoglobin (Bld) [Mass/Vol] 13.2 g/dL Normal 12.0-16.0 [facility] Comment on above: Performed By: #### C BC #### [facility] [address] [place] [address] Dr. Eric Brady IG # 0.02 10e3/ul Normal 0.00-0.03 [facility] Comment on above: Performed By: #### C BC #### [facility] [address] [place] [address] Dr. Eric Brady IG % 0.2 % Normal 0.0-0.5 [facility] Comment on above: Performed By: #### C BC #### [facility] [address] [place] [address] Dr. Eric Brady LYMPH # 2.5 103/ul Normal 1.2-3.8 [facility] Comment on above: Performed By: #### C BC #### [facility] [address] [place] [address] Dr. Eric Brady Lymphocytes/100 WBC (Bld) 30.3 % Normal 20.5-60.0 [facility] Comment on above: Performed By: #### C BC #### [facility] [address] [place] [address] Dr. Eric Brady MANUAL DIFF REQ NO Normal [facility] Comment on above: Performed By: #### C BC #### [facility] [address] [place] [address] Dr. Eric Brady MCH (RBC) [Entitic mass] 29.4 pg Normal 26.7-34.0 [facility] Comment on above: Performed By: #### C BC #### [facility] [address] [place] [address] Dr. Eric Brady MCHC (RBC) [Mass/Vol] 32.4 g/dL Normal 29.9-35.2 [facility] Comment on above: Performed By: #### C BC #### [facility] [address] [place] [address] Dr. Eric Brady MCV (RBC) [Entitic vol] 90.6 fL Normal 81.0-99.0 [facility] Comment on above: Performed By: #### C BC #### [facility] [address] [place] [address] Dr. Eric Brady MONO # 0.8 103/ul Normal 0.3-0.8 [facility] Comment on above: Performed By: #### C BC #### [facility] [address] [place] [address] Dr. Eric Brady Monocytes/100 WBC (Bld) 10.1 % Normal 1.7-12.0 [facility] Comment on above: Performed By: #### C BC #### [facility] [address] [place] [address] Dr. Eric Brady NEUT # 4.7 103/ul Normal 1.4-6.5 [facility] Comment on above: Performed By: #### C BC #### [facility] [address] [place] [address] Dr. Eric Brady Neutrophils/100 WBC (Bld) 56.4 % Normal 43.0-75.0 [facility] Comment on above: Performed By: #### C BC #### [facility] [address] [place] [address] Dr. Eric Brady Platelet mean volume (Bld) [Entitic vol] 9.1 fL Critically low 9.5-13.5 [facility] Comment on above: Performed By: #### C BC #### [facility] [address] [place] [address] Dr. Eric Brady PLT 287 103/ul Normal 150-450 [facility] Comment on above: Performed By: #### C BC #### [facility] [address] [place] [address] Dr. Eric Brady RBC 4.49 106/ul Normal 4.20-5.40 [facility] Comment on above: Performed By: #### C BC #### [facility] [address] [place] [address] Dr. Eric Brady WBC 8.3 103/ul Normal 4.0-11.0 [facility] Comment on above: Performed By: #### C BC #### [facility] [address] [place] [address] Dr. Eric Brady POINT OF CARE GLUCOSEon 08-06 Glucose [Mass/Vol] 145 mg/dL Critically high 74-106 [facility] Comment on above: Performed By: #### P OCGLUC #### [facility] [address] [place] [address] Dr. Eric Brady Glucose [Mass/Vol] 127 mg/dL Critically high 74-106 [facility] Comment on above: Performed By: #### P OCGLUC #### [facility] [address] [place] [address] Dr. Eric Brady PROF CHEM 8 (BAS METB)on Anion gap [Moles/Vol] 12.3 mmol/L Normal [facility] Comment on above: Performed By: #### B MP #### [facility] [address] [place] [address] Dr. Eric Brady Calcium [Mass/Vol] 9.3 mg/dL Normal 8.5-10.1 [facility] Comment on above: Performed By: #### B MP #### [facility] [address] [address] [address] Eric Brady Chloride [Moles/Vol] 105 mmol/L Normal 98-107 [facility] Comment on above: Performed By: #### B MP #### [facility] [address] [address] [address] Eric Brady CO2 [Moles/Vol] 28.1 mmol/L Normal 21.0-32.0 [facility] Comment on above: Performed By: #### B MP #### [facility] [address] [place] [address] Dr. Eric Brady Creatinine [Mass/Vol] 0.92 mg/dL Normal 0.55-1.02 [facility] Comment on above: Performed By: #### B MP #### [facility] [address] [place] [address] Dr. Eric Brady EGFR-AF TRINIDADIAN >60 Normal >=60 [facility] Comment on above: Performed By: #### B MP #### [facility] [address] [address] [address] Eric Brady EGFR-NON AF TRINIDADIAN >60 Normal >=60 [facility] Comment on above: Performed By: #### B MP #### [facility] [address] [address] [address] Eric Brady Glucose [Mass/Vol] 100 mg/dL Normal 74-106 [facility] Comment on above: Performed By: #### B MP #### [facility] [address] [address] [address] Eric Brady Potassium [Moles/Vol] 4.4 mmol/L Normal 3.5-5.1 [facility] Comment on above: Performed By: #### B MP #### [facility] [address] [address] [address] Eric Brady Sodium [Moles/Vol] 141 mmol/L Normal 136-145 The [facility] Comment on above: Performed By: #### B MP #### [facility] [address] [place], [place] [address] Dr. Eric Brady Urea nitrogen [Mass/Vol] 13.0 mg/dL Normal 7.0-18.0 [facility] Comment on above: Performed By: #### B MP #### [facility] [address] [place], [place] [address] Dr. Eric Brady Urea nitrogen/Creatinine [Mass ratio] 14.1 mg/mg Normal [facility] Comment on above: Performed By: #### B MP #### [facility] [address], [place] [address] Dr. Eric LEMON Breast - bilateral Screen ingon 07-26-2022 IMPRESSION: No mammographic evidence of malignancy. BI-RADS: 1: Negative Recommendation: Routine mammography. Recommendation Laterality: Bilateral The current National Comprehensive Cancer Network and [employer] guidelines recommend women undergo [...] The current National Comprehensive Cancer Network and [employer] guidelines recommend women undergo a screening mammogram every year over the age of 40 and continue mammographic screening as long as they are in good health. Screening mammography under age 40 may occur for women who are at increased risk for breast cancer. I personally viewed and interpreted these images and I have reviewed and approved this report. [facility] Radiology Study observation (narrative) [facility] MG Breast - bilateral Screen ingOrdered By: Jacek Garrison on 07-26-2022 [facility] Work Phone: XR Hip Complete Right*on XR [...] by Orlando Nick on 07/05/2022 1412 Normal [facility] [employer] MG Breast - bilateral Screen ingon 07-27-2021 IMPRESSION: No mammographic evidence of malignancy. BI-RADS: 1: Negative Recommendation: Routine mammography. Recommendation Laterality: Bilateral The current National Comprehensive Cancer Network and [employer] guidelines recommend women undergo [...] The current National Comprehensive Cancer Network and [employer] guidelines recommend women undergo a screening mammogram every year over the age of 40 and continue mammographic screening as long as they are in good health. Screening mammography under age 40 may occur for women who are at increased risk for breast cancer. [facility] Rad[facility] Study observation (narrative) [facility] MG Breast - bilateral Screen ingOrdered By: Sejal Parkinson on 07-27-2021 [facility] Work Phone: Vital Signs Date Time Vital Sign Value Performing Clinician Facility 06-12-2024 13:00-0500 Body height 162.6 cm Kiara Zelaya MD Work Phone: [facility] 06-12-2024 13:00-0500 Body mass index (BMI) [Ratio] 34.09 kg/m2 Kiara Zelaya MD Work Phone: [facility] 06-12-2024 13:00-0500 Body weight 90.08 kg Kiara Zelaya MD Work Phone: [facility] 06-12-2024 13:00-0500 Diastolic blood pressure 78 mm[Hg] Kiara Zelaya MD Work Phone: [facility] 06-12-2024 13:00-0500 Heart rate 84 /min Kiara Zelaya MD Work Phone: [facility] 06-12-2024 13:00-0500 Respiratory rate 18 /min Kiara Zelaya MD Work Phone: [facility] 06-12-2024 13:00-0500 SaO2% (BldA) [Mass fraction] 99 % Kiara Zelaya MD Work Phone: [facility] 06-12-2024 13:00-0500 Systolic blood pressure 136 mm[Hg] Kiara Zelaya MD Work Phone: [facility] 08-07-2023 12:36-0400 Body mass index (BMI) [Ratio] 33.71 kg/m2 Fredis Grayson PULP MACHINE OPERATOR-AVIATION MECHANIC Work Phone: [facility] 08-07-2023 12:36-0400 Body temperature 97.39 [degF] Fredis Grayson PULP MACHINE OPERATOR-AVIATION MECHANIC Work Phone: [facility] 08-07-2023 12:36-0400 Body weight 90.77 kg Fredis Grayson PULP MACHINE OPERATOR-AVIATION MECHANIC Work Phone: [facility] 08-07-2023 12:36-0400 Diastolic blood pressure 60 mm[Hg] Fredis Grayson PULP MACHINE OPERATOR-AVIATION MECHANIC Work Phone: [facility] 08-07-2023 12:36-0400 Heart rate 82 /min Fredis Renuka PULP MACHINE OPERATOR-AVIATION MECHANIC Work Phone: 5([phone])345-[address] [place] [address] 08-07-2023 12:36-0400 Systolic blood pressure 133 mm[Hg] Fredis Renuka PULP MACHINE OPERATOR-AVIATION MECHANIC Work Phone: 6(366)979-567595 [place] [address] 07-26-2022 14:36-0400 Body mass index (BMI) [Ratio] 34.37 kg/m2 Fredis Renuka PULP MACHINE OPERATOR-AVIATION MECHANIC Work Phone: 5(601)885-040395 [place] [address] 07-26-2022 14:36-0400 Body temperature 97.7 [degF] Fredis Renuka PULP MACHINE OPERATOR-AVIATION MECHANIC Work Phone: 8(865)055-555795 [place] [address] 07-26-2022 14:36-0400 Body weight 92.53 kg Fredis Renuka PULP MACHINE OPERATOR-AVIATION MECHANIC Work Phone: 9(184)840-053195 [place] [address] 07-26-2022 14:36-0400 Diastolic blood pressure 74 mm[Hg] Fredis Renuka PULP MACHINE OPERATOR-AVIATION MECHANIC Work Phone: 7(630)604-836095 [place] [address] 07-26-2022 14:36-0400 Heart rate 81 /min Fredis Renuka PULP MACHINE OPERATOR-AVIATION MECHANIC Work Phone: 2(222)364-252395 [place] [address] 07-26-2022 14:36-0400 Systolic blood pressure 161 mm[Hg] Fredis Renuka PULP MACHINE OPERATOR-AVIATION MECHANIC Work Phone: 5(123)263-505295 [place] [address] 07-17-2022 08:46-0400 Diastolic blood pressure 80 mm[Hg] MD Kiara Zelaya Work Phone: [facility] 07-17-2022 08:46-0400 Heart rate 69 /min MD Kiara Zelaya Work Phone: [facility] 07-17-2022 08:46-0400 Respiratory rate 16 /min MD Kiara Zelaya Work Phone: [facility] 07-17-2022 08:46-0400 SaO2% (BldA) [Mass fraction] 96 % MD Kiara Zelaya Work Phone: [facility] 07-17-2022 08:46-0400 Systolic blood pressure 132 mm[Hg] MD Kiara Zelaya Work Phone: [facility] 07-17-2022 07:22-0400 Body height 162.56 cm MD Kiara Zelaya Work Phone: [facility] 07-17-2022 07:22-0400 Body temperature 97.9 [degF] MD Kiara Zelaya Work Phone: [facility] 07-17-2022 07:22-0400 Body weight 90.71 kg MD Kiara Zelaya Work Phone: [facility] Encounters Encounter Date Encounter Type Care Provider Facility Start: 06-19-2024 End: 06-19-2024 Office outpatient visit 25 minutes Tre ASH Work Phone: [facility] Comment on above: Other alopecia areat a (Primary Dx) Start: 06-19-2024 End: 06-19-2024 ambulatory TRE JOSUE Not Available Start: 06-17-2024 End: 06-17-2024 ambulatory AMINA MAJORS Not Available Start: 06-12-2024 End: 06-12-2024 Bamboo flowsheet Kiara Zelaya MD Work Phone: [facility] Start: 06-12-2024 End: 06-12-2024 Bamboo flowsheet Kiara Zelaya MD Work Phone: [facility] Start: 06-12-2024 End: 06-12-2024 Telephone encounter Kiara Zelaya MD Work Phone: [facility] Start: 06-12-2024 End: 06-12-2024 Patient encounter procedure Kiara Zelaya MD Work Phone: [facility] Start: 06-12-2024 End: 06-12-2024 Periodic preventive med est patient 40-64yrs Kiara Zelaya MD Work Phone: [facility] Comment on above: Encounter for annual wellness visit (Primary Dx); Chronic otitis externa of both ears, unspecified type; Alopecia areata; Thyroid nodule (CMS/HCC); Nodular thyroid disease (CMS/HCC); Tobacco abuse Start: 06-12-2024 End: 06-12-2024 ambulatory KIARA ZELAYA Not Available Start: 10-17-2023 End: 10-17-2023 ambulatory KIARA ZELAYA Not Available Start: 10-10-2023 End: 10-10-2023 ambulatory KIARA ZELAYA Not Available Start: 10-02-2023 End: 10-02-2023 ambulatory KIARA ZELAYA Not Available Start: 08-07-2023 ambulatory FREDIS Sanford ity:[facility] Start: 08-07-2023 End: 08-07-2023 Office outpatient visit 15 minutes Fredis Grayson PULP MACHINE OPERATOR-AVIATION MECHANIC Work Phone: [facility] Comment on above: Fibrocystic breast c hanges, bilateral (Primary Dx); Encounter for screening mammogram for breast cancer; Family history of breast cancer; Encounter for screening mammogram for malignant neoplasm of breast Start: 08-07-2023 End: 08-07-2023 Subsequent hospital visit by physician Fredis Grayson PULP MACHINE OPERATOR-AVIATION MECHANIC Work Phone: [facility] Mammography at [facility] Joseph Comment on above: Arrived Start: 09-19-2022 End: 09-20-2022 ambulatory ZACH MCNAMARA Facility:[facility] Start: 08-28-2022 End: 08-28-2022 ambulatory WEST Talavera Facility:[facility] Start: 08-21-2022 Encounter for preprocedural cardiovascular examination [facility] Start: 08-21-2022 Encounter for preprocedural laboratory examination [facility] Start: 08-16-2022 End: 08-17-[address] KIARA ZELAYA Facility:[facility] Start: 08-16-2022 End: 04-13-2023 Encounter for preprocedural laboratory examination DR KIARA ZELAYA Facility:[facility] Start: 07-26-2022 End: 07-26-2022 Office outpatient visit 15 minutes Fredis Grayson PULP MACHINE OPERATOR-AVIATION MECHANIC Work Phone: Division of Surgical Oncology Comment on above: Fibrocystic breast c hanges, bilateral (Primary Dx); Family history of breast cancer; Encounter for screening mammogram for malignant neoplasm of breast Start: 07-26-2022 End: 07-26-2022 Subsequent hospital visit by physician rFedis Grayson PULP MACHINE OPERATOR-AVIATION MECHANIC Work Phone: [facility] Comment on above: Arrived Start: 07-17-2022 End: 07-17-2022 ambulatory Chente Powell Facility:[facility] Start: 07-17-2022 End: 07-17-2022 Admission to same day surgery center MD Kiara Zelaya Work Phone: [facility] Work Phone: Start: 07-17-2022 End: 07-17-2022 ambulatory MD Kiara Zelaya Work Phone: [facility] Work Phone: Start: 06-28-2022 End: 06-29-2022 ambulatory ZACH MCNAMARA Facility: Start: 07-27-2021 End: 07-27-2021 Subsequent hospital visit by physician Fredis Grayson PULP MACHINE OPERATOR-AVIATION MECHANIC Work Phone: [facility] Comment on above: Arrived Procedures Date Procedure Procedure Detail Performing Clinician Start: 08-07-2023 End: 08-07-2023 Screening mammography bi 2-view breast inc cad Fredis Grayson PULP MACHINE OPERATOR-AVIATION MECHANIC Work Phone: Start: 07-26-2022 Screening mammograph y bi 2-view breast inc cad Fredis Grayson PULP MACHINE OPERATOR-AVIATION MECHANIC Work Phone: Start: 07-17-2022 Screening colonoscopy M Marialuisa Zelaya Work Phone: Start: 07-17-2022 Colonoscopy Kiara Zelaya MD Work Phone: Start: 07-27-2021 Screening mammograph y bi 2-view breast inc cad Kathryn Carlin MD Work Phone: Plan of Treatment Date Care Activity Detail Author Start: 07-17-2032 Screening for malign ant neoplasm of colon [facility] Start: 11-03-2024 Influenza vaccination Influenza Vacc ine (#1) [facility] Comment on above: Postponed from 01/05 (Supply/Drug Shortage) Start: 09-18-2024 End: 09-18-2024 Patient encounter procedure 09/18/2024 2:00 PM EDT Office Visit [facility] [address] [place] [address] Tre Josue PA [address] [place] [address] [facility] Start: 08-13-2024 End: 08-13-2024 Patient encounter procedure [facility] Mammography at [facility] Start: 08-06-2024 End: 09-05-2024 MG Breast - bilateral Screening MAMMO SCREENING WITH ARLENE BILATERAL Imaging Routine Encounter for screening mammogram for malignant neoplasm of breast Expected: 08/06/2024 (Approximate), Expires: 09/05/2024 [facility] Comment on above: Expected: 08/06/2024 (Approximate), Expires: 09/05/2024 Start: 08-06-2024 Screening for malign ant neoplasm of breast [facility] Start: 06-12-2024 End: 06-12-2025 CBC W Auto Differential panel - Blood CBC and differential Lab Routine Encounter For Annual Wellness Visit Expected: 06/12/2024 (Approximate), Expires: 06/12/2025 [facility] Work Phone: Comment on above: Expected: 06/12/2024 (Approximate), Expires: 06/12/2025 Start: 06-12-2024 End: 06-12-2025 Comprehensive metabolic 2000 panel - Serum or Plasma Comprehensive metabolic panel Lab Routine Encounter for annual wellness visit Expected: 06/12/2024 (Approximate), Expires: 06/12/2025 [facility] Comment on above: Expected: 06/12/2024 (Approximate), Expires: 06/12/2025 Start: 06-12-2024 End: 06-12-2025 Lipid 1996 panel - Serum or Plasma Lipid panel Lab Routine Encounter for annual wellness visit Expected: 06/12/2024 (Approximate), Expires: 06/12/2025 [facility] Comment on above: Expected: 06/12/2024 (Approximate), Expires: 06/12/2025 Start: 06-12-2024 End: 06-12-2025 TSH W/REFLEX TO FT4 TSH W/REFLEX TO FT4 Lab Routine Thyroid nodule (CMS/HCC) Nodular thyroid disease (CMS/HCC) Expected: 06/12/2024 (Approximate), Expires: 06/12/2025 [facility] Comment on above: Expected: 06/12/2024 (Approximate), Expires: 06/12/2025 Start: 06-12-2024 End: 06-12-2025 US Thyroid gland US thyroid Imaging Routine Thyroid nodule (CMS/HCC) Nodular thyroid disease (CMS/HCC) Expected: 06/12/2024, Expires: 06/12/2025 [facility] Comment on above: Expected: 06/12/2024 , Expires: 06/12/2025 Start: 06-12-2024 End: 06-12-2024 Patient encounter procedure 06/12/2024 1:00 PM EST Office Visit [facility] [address] [place] [id number] Kiara Zelaya MD [address] [place], [place] [id number] Arrived [facility] Comment on above: Arrived Start: 01-06-2024 Influenza vaccination [facility] Start: 08-01-2023 End: 08-01-2023 Patient encounter procedure [facility] at [facility] Start: 07-27-2023 End: 08-27-2023 MG Breast - bilateral Screening MAMMO SCREENING WITH ARLENE BILATERAL Imaging Routine Encounter for screening mammogram for malignant neoplasm of breast Expected: 07/27/2023 (Approximate), Expires: 08/27/2023 [facility] Comment on above: Expected: 07/27/2023 (Approximate), Expires: 08/27/2023 Start: 07-27-2023 Screening for malign ant neoplasm of breast MAMMOGRAM SCREENING DISCUSSION [facility] Start: 07-18-2023 Screening for malign ant neoplasm of colon COLORECTAL CANCER SCREENING DISCUSSION [facility] Start: 01-05-2023 COVID-19 VACCINE ( season) COVID-19 VACCINE () [facility] Start: 07-27-2022 Screening mammography MAMMOGRA M SCREENING DISCUSSION [facility] Start: 07-27-2022 End: 07-27-2022 Patient encounter procedure [facility] at [facility] Start: 07-17-2022 [facility] Start: 01-05-2022 Influenza vaccination INFLUENZA VACC INE (#1) [facility] Start: 01-05-2021 Influenza vaccination INFLUENZA VACC INE (#1) [facility] Start: 2019 Screening for malign ant neoplasm of lung LUNG CANCER SCREENING [facility] Start: 2019 Zoster vaccine hzv l koki for subcutaneous use ZOSTER (SHINGLES) VACCINE (1 of 2) [facility] Start: 11-15-2015 Tetanus vaccination TETANUS [facility] Start: 2014 Colonoscopy COLORECTAL CAN CER SCREENING DISCUSSION [facility] Start: 2014 Screening for malign ant neoplasm of colon COLORECTAL CANCER SCREENING DISCUSSION [facility] Start: 2009 Fasting lipid profile LIPID SCREENIN G [facility] Start: 2009 Lipid panel LIPID SCREENING [facility] Start: 1990 Screening for malign ant neoplasm of cervix CERVICAL CANCER SCREENING DISCUSSION [facility] Start: 1988 Third diphtheria, tetanus and acellular pertussis (DTaP) vaccination TDAP (ADULT) [facility] Start: 1987 Tetanus vaccination TETANUS [facility] Start: 1984 HIV screening HIV SCREENING DISCUSSION [facility] Start: 1974 COVID-19 VACCINE (1) COVID-19 VACCIN E (1) [facility] Start: 1969 COVID-19 VACCINE (#1) COVID-19 VACCI NE (#1) [facility] Start: 1969 Hepatitis C antibody , confirmatory test HEPATITIS C VIRUS SCREENING [facility] Start: 1969 Hepatitis C screening HEPATITI S C VIRUS SCREENING [facility] Start: 1969 Screening for malign ant neoplasm of colon [facility] Immunizations Immunization Date Immunization Notes Care Provider Fa [facility] 04-23-2006 hepatitis B vaccine, adult dosage Kiara Zelaya MD Work Phone: [facility] 12-21-2005 hepatitis B vaccine, adult dosage Kiara Zelaya MD Work Phone: [facility] 11-14-2005 hepatitis B vaccine, adult dosage Kiara Zelaya MD Work Phone: [facility] 11-14-2005 tetanus toxoid, adsorbed Mar donell Zelaya MD Work Phone: [facility] 08-18-1974 diphtheria, tetanus toxoids and acellular pertussis vaccine, unspecified formulation Kiara Zelaya MD Work Phone: [facility] 08-18-1974 poliovirus vaccine, unspecified formulation Kiara Zelaya MD Work Phone: [facility] 06-26-1974 diphtheria, tetanus toxoids and acellular pertussis vaccine, unspecified formulation Kiara Zelaya MD Work Phone: [facility] 09-08-1970 mumps virus vaccine Kiara bernardo MD Work Phone: [facility] 08-11-1970 rubella virus vaccine Kiara allen MD Work Phone: [facility] 07-07-1970 measles virus vaccine Kiara allen MD Work Phone: [facility] 01-06-1970 poliovirus vaccine, unspecified formulation Kiara Zelaya MD Work Phone: [facility] 1969 diphtheria, tetanus toxoids and acellular pertussis vaccine, unspecified formulation Kiara Zelaya MD Work Phone: [facility] 1969 poliovirus vaccine, unspecified formulation Kiara Zelaya MD Work Phone: [facility] 1969 diphtheria, tetanus toxoids and acellular pertussis vaccine, unspecified formulation Kiara Zelaya MD Work Phone: [facility] 1969 diphtheria, tetanus toxoids and acellular pertussis vaccine, unspecified formulation Kiara Zelaya MD Work Phone: [facility] Payers Date Payer Category Payer [facility] [id number] 2022 Unknown [id number] 2022 Unknown [id number] 1969 Unknown [id number] 2.16.84 [id number] 1969 Unknown [id number] 2.16.84 [id number] 1969 Unknown [id number] 2.16.84 [id number] 1969 Unknown [id number] 2.16.84 [id number] 1969 Unknown [id number] 2.16. [id number] 1969 Unknown [id number] 2.16. [id number] 1969 Unknown [id number] 2.16.84 [id number] 1969 Unknown [id number] 2.16.84 [id number] 1969 Unknown [id number] 2.16.84 [id number] 1969 Unknown [id number] 2.16.84 [id number] 1969 Unknown [id number] 2.16.84 [id number] 1969 Unknown [id number] 2.16.84 [id number] 1969 Unknown [id number] 2.16.84 [id number] 1959 Self-pay 1959 Unknown [id number] Unknown MMO [id number] Unknown [id number] 2.16.8 [id number] Social History Date Type Detail Facility Start: 02-07-2016 End: 10-04-2022 Tobacco smoking status NHIS Ex-smoker [facility] Start: 11-24-1995 End: 10-05-2021 History of tobacco use Current smoker [facility] Start: 11-24-1995 End: 10-05-2021 History of tobacco use Cigarette Smoker [facility] Start: 02-07-2016 End: 10-04-2022 Cigarettes smoked current (pack per day) - Reported 1 [facility] Start: 02-07-2016 End: 07-26-2022 Tobacco use and exposure Smokeless tobacco non-user [facility] Start: 07-27-2021 End: 08-07-2023 Alcohol intake Current non-drinker of alcohol (finding) [facility] Start: 07-27-2021 End: 07-26-2022 History SDOH Financial 5 [facility] Start: 07-27-2021 End: 07-26-2022 History SDOH Food Worry 1 [facility] Start: 07-27-2021 End: 07-26-2022 History SDOH Transport Med 2 [facility] Start: 1970 Sex Assigned At Not on file O NAYAK [facility] Start: 07-17-2021 End: 07-27-2021 Exposure to SARS-CoV-2 (event) Not sure [facility] Start: 1970 Sex Assigned At Female F [facility] Start: 10-04-2022 End: 08-07-2023 Tobacco use panel [facility] How hard is it for y ou to pay for the very basics like food, housing, medical care, and heating Not hard at all [facility] (I/We) worried wheth er (my/our) food would run out before (I/we) got money to buy more. Never true [facility] Start: 01-11-2017 Gender identity Identifies as female gender (finding) [facility] Start: 10-04-2022 Tobacco use and exposure Former smokeless tobacco user [facility] Start: 10-17-2023 End: 06-19-2024 Alcoholic beverage intake Current drinker of alcohol (finding) [facility] How often to you hav e a drink containing alcohol? Never [facility] Start: 10-03-2022 Alcohol Comment soda/pop: more than 4 cups per day [facility] Goals Date Patient Goal Desired Activity /State Clinical Notes 07-27-2021 to 06-19-2024 NILSA Reynaga - 06/19/2024 2:00 PM ESTTelephone Encounter - Lisa Tineo - 06/12/2024 3:31 PM ESTTelephone Encounter - Lisa Tineo - 06/12/2024 3:31 PM ESTPatient Instructions Note Date & Type Note Facility 06-19-2024 History of Present illness Narrative Images from the original note were not included. Hair Loss Location: scalp Duration: couple of weeks Severity: localized Associated factors: recent stressful event Treatments used: none Established patient All pertinent medical history, medications, and allergies were reviewed. General Exam: alert, oriented to person, place, and time, normal affect, well appearing Accompanied by daughter A focused exam completed based on patient reported problems, see below: 1. Alopecia areata Related Procedures Ambulatory referral to Dermatology 2. Other alopecia areata Scalp Round, patchy areas of nonscarring hair loss. Flaring today The patient was counseled that alopecia areata is an autoimmune condition that causes hair loss. Treatments include topical or intralesional steroid injections. Patient elected for topicals today. Start Lidex 0.05 % solution, apply to affected areas on the scalp once daily until follow up. Recommended patient start Mens Rogaine 5% Solution OTC since she has access at work. Discussed that treatment can take some time and the goal is to prevent progression. She voiced understanding. Plan to follow up in 3 months. fluocinonide (Lidex) 0.05 % external solution - Scalp Apply to affected areas on the scalp, up to twice a day when flared, 30 day supply Next Visit: 3 months, follow up documented in this encounter [facility] 06-12-2024 Telephone encounter Note Vm left at 3:17 pm Hi, this is Anastacio calling from [facility] in [place]. Just on the mutual patient of Amina [facility], patient name is Karis Whatley. Data 69 for the chantix starter pack, just questioning the starter pack directions with the quantity of 206. So if you can give me a call back at [phone]. So I get this clarification for the patient. I would greatly appreciate it. Thank you, bye [facility] 06-12-2024 Miscellaneous Notes Vm left at 3:17 pm Hi, this is Anastacio calling from [facility] in [place]. Just on the mutual patient of Amina [facility], patient name is Karis Whatley. Data 69 for the chantix starter pack, just questioning the starter pack directions with the quantity of 206. So if you can give me a call back at [phone]. So I get this clarification for the patient. I would greatly appreciate it. Thank you, bye documented in this encounter [facility] 06-12-2024 History of Present illness Narrative Images from the original note were not included. Anjali Whatley is a 54 y.o. female presents with chief complaint of Hair/Scalp Problem, Ear Problem, and Annual Exam HPI: Presents to the office today for a bald spot on the left side of her head that she noticed 3-4 days ago, ear issues, and an annual wellness. Denies any recent chest pain, shortness of breath, dizziness, abd pain, or leg swelling. Reports she noticed a small bald spot, about a pea size, on the left side of her head, parietal region, that she noticed 3-4 days ago. Denies any recent hair loss. Denies any pain or redness to the area. Reports dry drainage/crusty's to her bilateral ears. She has had this issue for the past couple years in her left ear but noticed it starting in her right ear a couple weeks ago. When she lays down it feels like there is drainage moving in her ears but nothing comes out. Would like a prescription of Chantix. This medication has worked for her in the past to quit smoking. She is been under stress lately and started smoking again. SUBJECTIVE: MEDICATIONS: Current Outpatient Medications Medication Instructions magnesium 200 MG tablet 1 tablet, Every 24 hours Multiple Vitamin (Multi Vitamin Daily) tablet 1 tablet, Every 24 hours omega-3 (fish oil) 435 MG capsule 1 capsule, Daily ALLERGIES: Allergies Allergen Reactions Morphine Hives SURGICAL HISTORY: Past Surgical History: Procedure Laterality Date CHOLECYSTECTOMY HYSTERECTOMY 1999 FAMILY HISTORY: Family History Problem Relation Name Age of Onset Hypertension Mother Cancer Mother Cancer Father Hypertension Father SOCIAL HISTORY: Social History Tobacco Use Smoking status: Former Current packs/day: 0.00 Types: Cigarettes Quit date: 10/05/2021 Years since quittin.6 Smokeless tobacco: Former Substance Use Topics Alcohol use: Yes Comment: soda/pop: more than 4 cups per day Drug use: Never Depression: Low Risk (08/07/2023) [facility] Depression PHQ-9 Total Score (Interpretation of Total Score 1-4 = Minimal depression; 5-9 = Mild depression; 10-14 = Moderate depression; 15-19 = Moderately severe depression): 0 REVIEW OF SYMPTOMS: Review of Systems Constitutional: Negative. HENT: Positive for ear discharge. Eyes: Negative. Respiratory: Negative. Cardiovascular: Negative. Gastrointestinal: Negative. Genitourinary: Negative. Musculoskeletal: Negative. Skin: Hair loss Neurological: Negative. Psychiatric/Behavioral: Negative. OBJECTIVE: Visit Vitals BP 136/78 (BP Location: Left arm, Patient Position: Sitting, BP Cuff Size: Large adult) Pulse 84 Resp 18 Ht 5' 4 Wt 198 lb 9.6 oz SpO2 99% BMI 34.09 kg/m Smoking Status Former BSA 2.02 m Physical Exam Vitals and nursing note reviewed. Constitutional: Appearance: Normal appearance. HENT: Head: Normocephalic and atraumatic. Comments: Small, pea sized bald spot noted to left parietal region Right Ear: Tympanic membrane normal. No swelling or tenderness. Left Ear: Tympanic membrane normal. No swelling or tenderness. Ears: Comments: Bilateral canals with crusty, irritated skin. TM intact. Cardiovascular: Rate and Rhythm: Normal rate and regular rhythm. Pulses: Normal pulses. Heart sounds: Normal heart sounds. Pulmonary: Effort: Pulmonary effort is normal. Breath sounds: Normal breath sounds. Skin: General: Skin is warm and dry. Neurological: General: No focal deficit present. Mental Status: She is alert and oriented to person, place, and time. Psychiatric: Mood and Affect: Mood normal. Behavior: Behavior normal. ASSESSMENT AND PLAN: Assessment/Plan Problem List Items Addressed This Visit Endocrine/Metabolic Nodular thyroid disease (CMS/HCC) Relevant Orders TSH W/REFLEX TO FT4 US thyroid Other Visit Diagnoses Encounter for annual wellness visit - Primary Relevant Orders CBC and differential Comprehensive metabolic panel Lipid panel Healthy diet and keep active. Annual eye and dental exam. screen labs, cancer screens and vaccines reviewed an updated as needed. Chronic otitis externa of both ears, unspecified type Relevant Medications bdcoopph-wqfaydtqr-tzoLAQOHoxclz (Maxitrol) 0.1 % ophthalmic suspension Alopecia areata Relevant Orders Ambulatory referral to Dermatology Thyroid nodule (CMS/HCC) Relevant Orders TSH W/REFLEX TO FT4 US thyroid Tobacco abuse Relevant Medications varenicline (Chantix) 1 MG tablet Follow up with Dermatology for alopecia areata Use ear drops as needed Ultrasound of thyroid ordered. Please complete Take Chantix as prescribed to help quit smoking Follow up in 1 year for annual wellness documented in this encounter [facility] 10-17-2023 Note PROCEDURE: Axial helical 2.5 mm images through the abdomen and pelvis were performed without intravenous or oral contrast administration. Coronal reconstructed images were obtained. FINDINGS: Right kidney and collecting system: Normal cortical volume. Mid calyceal 2 x 4 mm stone aggregate. No collecting system dilatation, inflammation, or obstruction. Left kidney and collecting system: Normal. No bladder stone, air collection, or focal wall thickening. Hysterectomy. Moderate colon stool, minimal diverticulosis, no inflammation. Normal small bowel and appendix. Intact abdominal wall. No ascites or pelvic fluid. Unremarkable lung bases, liver, pancreas, spleen, adrenal glands, and biliary tree (status post cholecystectomy) IMPRESSION: Right mid calyceal nonobstructing several millimeter stone aggregate. TRANSCRIBED BY: ELECTRONICALLY SIGNED BY: Vinny Baez MD Not Available 08-07-2023 History of Present illness Narrative Images from the original note were not included. [id number] Anjali Whatley 08/07/2023 REFERRING/PRIMARY PROVIDER(S) Primary Care Provider: Joelle Conn Surgical oncologist: Swetha Pearson HISTORY OF PRESENT ILLNESS: Anjali Whatley is a 53 y.o. White female established patient who presents to the [facility] today for routine follow up. Chief Complaint Patient presents with Follow-up 1 year follow up with imaging today. No current concerns. She has fibrocystic breast changes and family history of breast cancer in her mother age 60 yr and paternal grandmother possibly had breast cancer in her 40s. There is no family history of ovarian cancer. 08/07/23 interval update She presents today for routine follow up with mammogram. She denies any new breast concerns, including lumps, skin changes, nipple changes/discharge or pain. Her medical, surgical, social and family history was reviewed and updated. Her allergies and current medications were reviewed and updated. She denies any changes to her medical, surgical, social or family history since her last visit. 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 Mammographic density: The breasts have scattered areas of fibroglandular density. Personal History of Benign Atypical Breast Biopsy: No Social History Tobacco Use Smoking status: Former Current packs/day: 0.00 Average packs/day: 1 pack/day for 20.0 years (20.0 ttl pk-yrs) Types: Cigarettes Start date: 11/24/1995 Quit date: 11/24/2015 Years since quittin.7 Smokeless tobacco: Never Substance Use Topics Alcohol use: No Alcohol/week: 0.0 standard drinks of alcohol Drug use: No GENETICS: Ashkenazi Ancestry: No [...] age 75 years Vulvar cancer maternal aunt There is no family history of prostate, uterine, pancreatic, gastric, brain, renal cell or thyroid cancer. There is no family history of melanoma, sarcoma or leukemia. Osteoporosis: No Stroke: Yes maternal grandmother Blood Clot: Yes maternal grandmother Heart attack: No Thyroid Nodule or Goiter: No Autism: No REVIEW OF SYSTEMS: She denies any recently unintentional weight loss, CP, SOB, cough or severe headache. PHYSICAL EXAMINATION VITAL SIGNS: BP 133/60 (BP Location: Left arm, BP Position: Sitting) Pulse 82 Temp 97.4 F (36.3 C) (Oral) Wt 90.8 kg (200 lb 1.6 oz) BMI 33.71 kg/m Smoking Status Former GENERAL: Well nourished, [...] or axillary adenopathy bilaterally. Exam stable on 08/07/23 Risk calculation : Her risk was calculated 04/17/18 using these models as below: Benjamín model score: 5 year risk: 1.8% Lifetime risk: 17.3% Devonte Score: Risk by age 49yrs: 0.1% Risk by age 79yrs: 8.1% BILLIE score v.8: IMAGING: EXAM: MAMMO SCREENING WITH ARLENE BILATERAL, 08/07/2023 12:18 PM CLINICAL INDICATIONS: Screening COMPARISON: July 26, 2022, July 27, 2021, July 21, 2020, July 02, 2019 TECHNIQUE: 3-D MLO and CC digital tomosynthesis images were obtained of the bilateral breasts. Synthetic 2-D images were generated from the tomosynthesis data. Computer aided detection was utilized. FINDINGS: Breast Density: The breasts have scattered areas of fibroglandular density. There are no suspicious masses, calcifications, or architectural distortions. IMPRESSION IMPRESSION: No mammographic evidence of malignancy. BI-RADS: 1: Negative Recommendation: Routine mammography. Recommendation Laterality: Bilateral The current National Comprehensive Cancer Network and [employer] guidelines recommend women undergo a screening mammogram every year over the age of 40 and continue mammographic screening as long as they are in good health. Screening mammography under age 40 may occur for women who are at increased risk for breast cancer. Electronically Signed By: Jacek Garrison MD IMPRESSION/PLAN: IMPRESSION: She is 53 y.o. female with bilateral fibrocystic breast changes [...] Followup: Return in about 1 year (around 08/06/2024) for Mammo and same day HR return with Fredis Grayson.. She was encouraged on SBA. She was advised to reach out as needed with any new or worsening concerns. MELVA Wang spent approximately 20 minutes preparing for and in direct patient care with this patient 08/07/23 Patient offered a medical tug boat captain for sensitive exam. Patient declined tug boat captain. documented in this encounter [facility] 08-07-2023 Instructions MELVA Wang - 08/07/2023 1:00 PM EDT Health Promotion/Lifestyle Recommendations for Breast [...] are many programs offered here at the [facility] for assistance with smoking cessation. Exercise: Studies [...] your enjoyment level documented in this encounter [facility] 08-07-2023 History of Present illness Narrative Patient offered a medical tug boat captain for sensitive exam. Pt declined documented in this encounter [facility] 09-20-2022 Note PROCEDURE: XR FOOT R T [...] authenticated by: CASIMIRO MICHELE Date: 2022-09-20 06:41 [facility] 08-28-2022 Note PROCEDURE: XR FOOT R T [...] by: CASIMIRO MICHELE Date: 2022-08-28 11:01 [facility] 08-28-2022 Note PROCEDURE: XR FOOT R T [...] by: CASIMIRO MICHELE Date: 2022-08-28 09:54 [facility] 07-26-2022 History of Present illness Narrative Images from the original note were not included. [id number] Anjali Whatley 07/26/2022 REFERRING/PRIMARY PROVIDER(S) Primary Care Provider: Joelle Conn Surgical oncologist: Swetha Pearson HISTORY OF PRESENT ILLNESS: Anjali Whatley is a 52 y.o. White female established patient who presents to the [facility] today for routine [...] family history since her last visit. 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 Patient offered a medical tug boat captain for sensitive exam. Patient declined tug boat captain. documented in this encounter [facility] 07-26-2022 Instructions MELVA Wang - 07/26/2022 2:40 [...] are many programs offered here at the [facility] for assistance with smoking cessation. Exercise: Studies [...] your enjoyment level documented in this encounter [facility] 07-26-2022 History of Present illness Narrative Patient offered a medical tug boat captain for sensitive exam. Pt declined documented in this encounter [facility] 07-17-2022 History and physical note Note Date/Time July 17, 2022 8:0 3am [facility] [address] [place] [address] Gastroenterology H&P Signed Patient: Anjali Whatley MR#: [id number] : 1970 Acct:[id number] Age/Sex: 52 / F Adm Date: 3 Loc: Room: Type: [facility] Attending Dr: Chente Powell MD Copies to: [...] <Electronically signed by Chente Powell MD> 07/17/22802 [facility] Work Phone: [phone]) 210-497203-13-2023 [facility] NotePROCEDURE: XR FOOT RT MIN 3 [...] authenticated by: CASIMIRO MICHELE Date: 2022-06-29 10:12[id number] History of Present illness Narrative* Debbie Srinivasan - 07/27/2021 12:40 PM EDT Patient offered a medical tug boat captain for sensitive exam. Pt declined [facility] Diagnosis Bilateral fibrocystic breast changes [facility] Work Phone: Evaluation note* Diagnosis Fibrocystic breast changes, bilateral- Primary Family history of breast cancer Family history of malignant neoplasm of breast Encounter for screening mammogram for malignant neoplasm of breast Other screening mammogram [facility] Encounter for screening mammogram for breast cancer [facility] Diagnosis Fibrocystic breast changes, bilateral- Primary Encounter for screening mammogram for breast cancer Family history of breast cancer Family history of malignant neoplasm of breast Encounter for screening mammogram for malignant neoplasm of breast Other screening mammogram [facility] Diagnosis Encounter for screening mammogram for malignant neoplasm of breast Other screening mammogram [facility] Diagnosis Encounter for annual wellness visit- Primary Chronic otitis externa of both ears, unspecified type Alopecia areata Thyroid nodule (CMS/HCC) Nontoxic uninodular goiter Nodular thyroid disease (CMS/HCC) Tobacco abuse Tobacco use disorder documented in this encounter [facility]* Diagnosis Other alopecia areata- Primary documented in this encounter [facility] Discharge instructions Additional Instructions DISCHARGE INSTRUCTIONS FOR [...] FOLLOW UP & RECOMMENDATIONS: -Follow-up with Dr. Powell as needed -Notify the doctor if you have any problems. -Repeat colonoscopy in 10 years. -Follow up with PCP. -Office number [phone].[facility] Work Phone: Reason for Referral Specialty Diagnoses / Procedures Referred By Sae adam Referred To Contact Diagnoses Bilateral fibrocystic breast changes Procedures MAMMO SCREENING WITH ARLENE BILATERAL Kathryn Carlin MD [address] [facility] 3rd Floor, [address] [place] [address] Referral ID Status Reason Start Date Expiration Date V isits Requested Visits Authorized [id number] New Request 07/21/2020 08/15/2021 1 1 Specialty Diagnoses / Procedures Referred By Sae adam Referred To Contact Diagnoses Encounter for screening mammogram for malignant neoplasm of breast Procedures MAMMO SCREENING WITH ARLENE BILATERAL Fredis Grayson APRN-BE [address] [place] [address] Referral ID Status Reason Start Date Expiration Date V isits Requested Visits Authorized [id number] New Request 07/26/2022 08/20/2023 1 1 Specialty Diagnoses / Procedures Referred By Sae adam Referred To Contact Diagnoses Encounter for screening mammogram for breast cancer Procedures MAMMO SCREENING WITH ARLENE BILATERAL Fredis Grayson PULP MACHINE OPERATOR-AVIATION MECHANIC [address] [place] [address] Referral ID Status Reason Start Date Expiration Date V isits Requested Visits Authorized [id number] Pending Review 07/27/2021 08/21/2022 1 1 Referral ID Status Reason Start Date Expiration Date V isits Requested Visits Authorized [id number] New Request 08/07/2023 08/31/2024 1 1 Summary Purpose Family History No [...] Specialty Diagnoses / Procedures Referred By Sae adma Referred To Contact Diagnoses Bilateral fibrocystic breast changes Procedures MAMMO SCREENING WITH ARLENE BILATERAL Kathryn Carlin MD [address] [facility] 3rd Floor, [address] [place] [address] Referral ID Status Reason Start Date Expiration Date V isits Requested Visits Authorized [id number] New Request 07/21/2020 08/15/2021 1 1 Reason Comments Follow-up Patient presents for annual exam and mammogram. Patient denies any new breast concerns. Specialty Diagnoses / Procedures Referred By Sae adam Referred To Contact Diagnoses Encounter for screening mammogram for breast cancer Procedures MAMMO SCREENING WITH ARLENE BILATERAL Fredis Grayson PULP MACHINE OPERATOR-AVIATION MECHANIC [address] [place] [address] Referral ID Status Reason Start Date Expiration Date V isits Requested Visits Authorized [id number] Pending Review 07/27/2021 08/21/2022 1 1 Reason Comments Follow-up 1 year follow up wit h imaging today. No current concerns. Specialty Diagnoses / Procedures Referred By Contac t Referred To Contact Diagnoses Encounter for screening mammogram for malignant neoplasm of breast Procedures MAMMO SCREENING WITH ARLENE BILATERAL Fredis Grayson, PULP MACHINE OPERATOR-AVIATION MECHANIC [address] [place] [address] Referral ID Status Reason Start Date Expiration Date V isits Requested Visits Authorized [id number] New Request 07/26/2022 08/20/2023 1 1 Reason Comments Hair/Scalp Problem Ear Problem Annual Exam Reason Comments Hair/Scalp Problem Specialty Diagnoses / Procedures Referred By Sae t Referred To Contact Dermatology Diagnoses Alopecia areata Procedures NC OFFICE/OUTPATIENT NEW HIGH MDM 60 MINUTES Amina Vasquez, SILVANO [address] [place] [address] Phone: tel: fax: Lidia De La Cruz MD [address] [address] Phone: tel: fax: Referral ID Status Reason Start Date Expiration Date V isits Requested Visits Authorized [id number] Closed Specialty Services Required 06/12/2024 12/09/2024 1 1 Care Teams (unrecognized sec tion and content) Customer Service Consultant Relationship Specialty Start Date End Date Joelle Conn MD [address] [place] [id number] PCP - General Family Medicine 10/25/11 Team Status: Active Member Role Status Dates Kiara Zelaya MD Primary Care Provider Active Team Status: Inactive Member Role Status Dates Chente Powell MD Attending Provider Active Kiara Zelaya MD Primary Care Provider Active Customer Service Consultant Relationship Specialty Start Date End Date Joelle Conn MD [address] [place], [place] [address] [address] PCP - General Family Medicine 10/25/11 Customer Service Consultant Relationship Specialty Start Date End Date [facility] [place] [address] PCP - General Family Medicine 10/25/11 Customer Service Consultant Relationship Specialty Start Date End Date Joelle Conn MD [address] [place] [address] PCP - General Family Medicine 10/25/11 Customer Service Consultant Relationship Specialty Start Date End Date Joelle Conn MD [address] [place] [address] PCP - General Family Medicine 10/25/11 Customer Service Consultant Relationship Specialty Start Date End Date Jessica Ortiz NP PCP - [employer] 08/05/22 Kiara eZlaya MD [address] [place] [facility] [place] [address] PCP - General Family Medicine 10/04/22 Customer Service Consultant Relationship Specialty Start Date End Date Jessica Ortiz NP PCP - [employer] 08/05/22 Kiara Zelaya MD [address] [place] [facility] [place] [address] PCP - General Family Medicine 10/04/22 Customer Service Consultant Relationship Specialty Start Date End Date Jessica Ortiz NP PCP - [employer] 08/05/22 Kiara Zelaya MD [address] [place] [place] [address] PCP - General Family Medicine 10/04/22 Customer Service Consultant Relationship Specialty Start Date End Date Jessica Ortiz NP PCP - [employer] 08/05/22 Kiara Zelaya MD [address] [place] [address] PCP - General Family Medicine 10/04/22 INFORMATION SOURCE (unrecogn ized section and content) DATE CREATED AUTHOR 07/07/2022 [facility] dical Specialist DATE CREATED AUTHOR AUTHOR'S ORGANIZ ATION 07/24/2022 [facility] DATE CREATED AUTHOR AUTHOR'S ORGANIZ ATION 09/20/2022 [facility] DATE CREATED AUTHOR AUTHOR'S ORGANIZ ATION 08/08/2023 [facility] DATE CREATED AUTHOR AUTHOR'S ORGANIZ ATION 06/21/2024 [facility] dical Specialists [facility] FOR RECORDS PERTAINING TO PATIENTS WHO ARE [...] BE BASED ON THE PRIMARY CLINICAL RECORDS. [employer] provides no warranty or guarantee of the accuracy or completeness of information in this document.
== END 2024-06-25 09:13 | disposition home or self-care (01) ==
PROVIDERS: PCP Nurse Practitioner Family; Visit Provider Podiatrist Foot & Ankle Surgery
DX: M79.671 Pain in right foot (principal); M24.674 Ankylosis, right foot
CPT/HCPCS: 73630